=== PATIENT | male | born 1990 | race Caucasian/White ===

== ENCOUNTER 2017-07-30 10:18 | Inpatient (IN) | payer MEDICAID ==
[~2017-07-30] VITALS: Ht 177.8 cm; Wt 154.7 kg
[2017-07-30] MEDS: NACL 0.9% 1,000 ML IV SCH ×3 (00:45→18:27)
[2017-07-30 10:19] VITALS: BP 156/105
[2017-07-30] MEDS ORDERED: NACL 0.9% 1,000 ML IV ONE ×2 (11:00→11:45)
[2017-07-30 11:16] LABS: BASOPHILS # (AUTO) 0.1 K/uL (0.00-0.22); BASOPHILS % (AUTO) 1.2 % (0.0-2.0); EOSINOPHILS # (AUTO) 0.1 K/uL (0-0.4); EOSINOPHILS % (AUTO) 0.6 % (0.0-4.0); HEMATOCRIT 46.5 % (36-52); HEMOGLOBIN 15.4 g/dL (12.0-18.0); LYMPHOCYTES # (AUTO) 2.2 K/uL (2.0-11.5); LYMPHOCYTES % (AUTO) 22.6 % (20.5-51.1); MEAN CORPUSCULAR HEMOGLOBIN 24 pg (27-31); MEAN CORPUSCULAR HGB CONC 33 g/dL (33-37); MEAN CORPUSCULAR VOLUME 72.7 fL (80-94); MONOCYTES # (AUTO) 0.7 K/uL (0.8-1.0); MONOCYTES % (AUTO) 6.9 % (1.7-9.3); NEUTROPHILS # (AUTO) 6.8 K/uL (1.8-7.7); NEUTROPHILS % (AUTO) 68.7 % (42.2-75.2); PLATELET COUNT (AUTO) 226 K/uL (140-450); RED CELL DISTRIBUTION WIDTH 17.9 % (11.6-13.7); WHITE BLOOD COUNT (AUTO) 9.9 K/uL (4.8-10.8)
[2017-07-30 11:35] LABS: ALBUMIN 3.8 g/dL (3.4-5.0); ANION GAP 22.6 (8-16); CARBON DIOXIDE 21.8 mmol/L (21-32); CREATININE 1.4 mg/dL (0.7-1.3); POTASSIUM 4.4 mmol/L (3.5-5.1); TOTAL BILIRUBIN 0.6 mg/dL (0.0-1.0)
[2017-07-30] MEDS ORDERED: INSULIN REGULAR, HUMAN 100 UNIT/ML VIAL SUBQ ONE (11:45)
[2017-07-30] MEDS ORDERED: ACETAMINOPHEN 325 MG TAB PO PRN (12:30)
[2017-07-30] MEDS ORDERED: DEXTROSE 50% 50 ML SYR IVP PRN (13:00)
[2017-07-30 13:30] VITALS: BP 144/68
[2017-07-30] MEDS ORDERED: INSULIN LANTUS 100 UNITS/ML 10 ML VIAL SUBQ SCH (13:30)
[2017-07-30 13:32] LABS: PROTHROMBIN TIME 10.4 secs (10.8-13.4)
[2017-07-30 14:01] LABS: FREE T4 (FREE THYROXINE) 1.14 ng/dL (0.76-1.46); PHOSPHORUS 4.2 mg/dL (2.5-4.9); THYROID STIMULATING HORMONE 1.79 uIU/mL (0.34-3.74)
[2017-07-30 16:00] VITALS: BP 150/96
[2017-07-30] MEDS ORDERED: metFORMIN 500 MG TAB PO SCH (17:00)
[2017-07-30] MEDS: BLOOD GLUCOSE MONITORING 1 DEV DEV FS SCH ×2 (17:30→21:00)
[2017-07-30] MEDS: INSULIN LISPRO SLIDING SCALE 100 UNITS/ML VIAL SUBQ PRN ×2 (17:46→21:35)
[2017-07-30] MEDS ORDERED: INSULIN LISPRO 100 UNITS/ML VIAL SUBQ SCH (18:00)
[2017-07-30 20:00] VITALS: BP 138/81
[2017-07-30] MEDS: DOCUSATE SODIUM 100 MG GELCAP PO SCH (21:00)
[2017-07-31] VITALS: BP 116/68
[2017-07-31] MEDS: NACL 0.9% 1,000 ML IV SCH ×3 (03:26→20:09)
[2017-07-31 04:00] VITALS: BP 122/72
[2017-07-31] MEDS: INSULIN LISPRO SLIDING SCALE 100 UNITS/ML VIAL SUBQ PRN ×4 (05:55→20:42)
[2017-07-31] MEDS: BLOOD GLUCOSE MONITORING 1 DEV DEV FS SCH ×4 (06:42→20:28)
[2017-07-31 07:37] LABS: BASOPHILS # (AUTO) 0.1 K/uL (0.00-0.22); BASOPHILS % (AUTO) 1.1 % (0.0-2.0); EOSINOPHILS # (AUTO) 0.3 K/uL (0-0.4); EOSINOPHILS % (AUTO) 2.9 % (0.0-4.0); HEMATOCRIT 42.9 % (36-52); HEMOGLOBIN 13.9 g/dL (12.0-18.0); LYMPHOCYTES # (AUTO) 2.6 K/uL (2.0-11.5); LYMPHOCYTES % (AUTO) 29.5 % (20.5-51.1); MEAN CORPUSCULAR HEMOGLOBIN 24 pg (27-31); MEAN CORPUSCULAR HGB CONC 32 g/dL (33-37); MEAN CORPUSCULAR VOLUME 72.9 fL (80-94); MONOCYTES # (AUTO) 0.5 K/uL (0.8-1.0); MONOCYTES % (AUTO) 5.4 % (1.7-9.3); NEUTROPHILS # (AUTO) 5.4 K/uL (1.8-7.7); NEUTROPHILS % (AUTO) 61.1 % (42.2-75.2); PLATELET COUNT (AUTO) 190 K/uL (140-450); RED BLOOD CELL COUNT(AUTO) 5.88 MIL/uL (4.20-6.10); RED CELL DISTRIBUTION WIDTH 19.1 % (11.6-13.7); WHITE BLOOD COUNT (AUTO) 8.8 K/uL (4.8-10.8)
[2017-07-31 07:48] LABS: ANION GAP 18.7 (8-16); CARBON DIOXIDE 20.1 mmol/L (21-32); CREATININE 0.9 mg/dL (0.7-1.3); POTASSIUM 3.8 mmol/L (3.5-5.1)
[2017-07-31 07:52] LABS: MAGNESIUM 1.6 mg/dL (1.8-2.4); PHOSPHORUS 3.5 mg/dL (2.5-4.9)
[2017-07-31 08:00] VITALS: BP 145/91
[2017-07-31] MEDS ORDERED: metFORMIN 850 MG TAB PO SCH (08:30)
[2017-07-31] MEDS: DOCUSATE SODIUM 100 MG GELCAP PO SCH ×2 (08:53→20:47)
[2017-07-31] MEDS: LISINOPRIL 5 MG TAB PO SCH (08:54)
[2017-07-31] MEDS ORDERED: INSULIN LANTUS 100 UNITS/ML 10 ML VIAL SUBQ SCH ×2 (09:00)
[2017-07-31] MEDS: metFORMIN 850 MG TAB PO SCH ×2 (11:48→16:34)
[2017-07-31 12:00] VITALS: BP 142/96
[2017-07-31 16:00] VITALS: BP 148/86
[2017-07-31] MEDS ORDERED: MAG SULF 2000 MG/WATER PREMIX 50 ML IV SCH (16:30)
[2017-07-31 19:49] VITALS: BP 146/84
[2017-07-31] MEDS ORDERED: INSULIN LANTUS 100 UNITS/ML 10 ML VIAL SUBQ ONE (21:00)
[2017-08-01] VITALS: BP 128/83
[2017-08-01] MEDS: NACL 0.9% 1,000 ML IV SCH ×3 (03:35→23:35)
[2017-08-01 03:55] VITALS: BP 133/84
[2017-08-01] MEDS: BLOOD GLUCOSE MONITORING 1 DEV DEV FS SCH ×4 (06:00→20:46)
[2017-08-01] MEDS: INSULIN LISPRO SLIDING SCALE 100 UNITS/ML VIAL SUBQ PRN ×4 (06:02→20:41)
[2017-08-01 06:56] LABS: ANION GAP 15.8 (8-16); CARBON DIOXIDE 21.8 mmol/L (21-32); CREATININE 0.8 mg/dL (0.7-1.3); POTASSIUM 3.6 mmol/L (3.5-5.1)
[2017-08-01 06:57] LABS: BASOPHILS # (AUTO) 0.1 K/uL (0.00-0.22); BASOPHILS % (AUTO) 0.9 % (0.0-2.0); EOSINOPHILS # (AUTO) 0.4 K/uL (0-0.4); EOSINOPHILS % (AUTO) 4.8 % (0.0-4.0); HEMATOCRIT 41.4 % (36-52); HEMOGLOBIN 13.5 g/dL (12.0-18.0); LYMPHOCYTES # (AUTO) 2.4 K/uL (2.0-11.5); LYMPHOCYTES % (AUTO) 29.6 % (20.5-51.1); MEAN CORPUSCULAR HEMOGLOBIN 24 pg (27-31); MEAN CORPUSCULAR HGB CONC 33 g/dL (33-37); MEAN CORPUSCULAR VOLUME 72.9 fL (80-94); MONOCYTES # (AUTO) 0.5 K/uL (0.8-1.0); MONOCYTES % (AUTO) 5.8 % (1.7-9.3); NEUTROPHILS # (AUTO) 4.7 K/uL (1.8-7.7); NEUTROPHILS % (AUTO) 58.9 % (42.2-75.2); PLATELET COUNT (AUTO) 187 K/uL (140-450); RED BLOOD CELL COUNT(AUTO) 5.68 MIL/uL (4.20-6.10); RED CELL DISTRIBUTION WIDTH 18.4 % (11.6-13.7)
[2017-08-01 07:12] LABS: MAGNESIUM 1.5 mg/dL (1.8-2.4); PHOSPHORUS 3.5 mg/dL (2.5-4.9)
[2017-08-01 08:00] VITALS: BP 133/92
[2017-08-01] MEDS: ATORVASTATIN 20 MG TAB PO SCH (08:25)
[2017-08-01] MEDS: ASPIRIN 81 MG TAB.CHEW PO SCH (08:25)
[2017-08-01] MEDS: metFORMIN 850 MG TAB PO SCH ×3 (08:25→17:22)
[2017-08-01] MEDS: DOCUSATE SODIUM 100 MG GELCAP PO SCH ×2 (08:25→20:39)
[2017-08-01] MEDS: LISINOPRIL 5 MG TAB PO SCH (08:26)
[2017-08-01] MEDS: INSULIN LANTUS 100 UNITS/ML 10 ML VIAL SUBQ SCH ×2 (08:41→08:49)
[2017-08-01] MEDS ORDERED: INSULIN LANTUS 100 UNITS/ML 10 ML VIAL SUBQ SCH (09:00)
[2017-08-01] MEDS ORDERED: MAG SULF 2000 MG/WATER PREMIX 50 ML IV SCH (12:00)
[2017-08-01 16:00] VITALS: BP 136/76
[2017-08-01 20:00] VITALS: BP 134/73
[2017-08-02] VITALS: BP 131/83
[2017-08-02] MEDS: NACL 0.9% 1,000 ML IV SCH ×2 (06:21→17:41)
[2017-08-02] MEDS: BLOOD GLUCOSE MONITORING 1 DEV DEV FS SCH ×4 (06:51→20:26)
[2017-08-02] MEDS: INSULIN LISPRO SLIDING SCALE 100 UNITS/ML VIAL SUBQ PRN ×4 (06:52→21:32)
[2017-08-02 07:28] LABS: BASOPHILS # (AUTO) 0.1 K/uL (0.00-0.22); BASOPHILS % (AUTO) 1.3 % (0.0-2.0); EOSINOPHILS # (AUTO) 0.3 K/uL (0-0.4); EOSINOPHILS % (AUTO) 5.1 % (0.0-4.0); HEMATOCRIT 39.3 % (36-52); LYMPHOCYTES # (AUTO) 1.8 K/uL (2.0-11.5); LYMPHOCYTES % (AUTO) 26.7 % (20.5-51.1); MEAN CORPUSCULAR HEMOGLOBIN 24 pg (27-31); MEAN CORPUSCULAR HGB CONC 33 g/dL (33-37); MONOCYTES # (AUTO) 0.5 K/uL (0.8-1.0); MONOCYTES % (AUTO) 7.3 % (1.7-9.3); NEUTROPHILS % (AUTO) 59.6 % (42.2-75.2); PLATELET COUNT (AUTO) 175 K/uL (140-450); RED BLOOD CELL COUNT(AUTO) 5.45 MIL/uL (4.20-6.10); RED CELL DISTRIBUTION WIDTH 18.6 % (11.6-13.7); WHITE BLOOD COUNT (AUTO) 6.7 K/uL (4.8-10.8)
[2017-08-02 07:41] LABS: MAGNESIUM 1.6 mg/dL (1.8-2.4); PHOSPHORUS 3.6 mg/dL (2.5-4.9)
[2017-08-02 07:46] LABS: ANION GAP 13.2 (8-16); CARBON DIOXIDE 21.3 mmol/L (21-32); CREATININE 0.7 mg/dL (0.7-1.3); POTASSIUM 3.5 mmol/L (3.5-5.1)
[2017-08-02 08:00] VITALS: BP 144/90
[2017-08-02] MEDS: metFORMIN 850 MG TAB PO SCH ×3 (08:44→17:37)
[2017-08-02] MEDS: ATORVASTATIN 20 MG TAB PO SCH (08:44)
[2017-08-02] MEDS: ASPIRIN 81 MG TAB.CHEW PO SCH (08:44)
[2017-08-02] MEDS: LISINOPRIL 5 MG TAB PO SCH (08:45)
[2017-08-02] MEDS: INSULIN LANTUS 100 UNITS/ML 10 ML VIAL SUBQ SCH (08:46)
[2017-08-02] MEDS: DOCUSATE SODIUM 100 MG GELCAP PO SCH ×2 (08:55→21:30)
[2017-08-02] MEDS ORDERED: CALCIUM CARB/VIT-D 500 MG/200 IU 1 TAB PO SCH (10:30)
[2017-08-02] MEDS ORDERED: MAGNESIUM OXIDE 400 MG TAB PO SCH (10:30)
[2017-08-02] MEDS: INSULIN NPH HUM/REG INSULIN HM 100 UNIT/ML 10 ML VIAL SUBQ SCH ×2 (11:34→20:28)
[2017-08-02 16:00] VITALS: BP 143/91
[2017-08-02] MEDS ORDERED: MAG SULF 2000 MG/WATER PREMIX 50 ML IV SCH (16:00)
[2017-08-02 20:00] VITALS: BP 123/50
[2017-08-03] VITALS: BP 118/71
[2017-08-03] MEDS: NACL 0.9% 1,000 ML IV SCH (05:32)
[2017-08-03] MEDS: BLOOD GLUCOSE MONITORING 1 DEV DEV FS SCH ×2 (06:10→11:30)
[2017-08-03] MEDS: INSULIN LISPRO SLIDING SCALE 100 UNITS/ML VIAL SUBQ PRN ×2 (06:14→12:42)
[2017-08-03 07:29] LABS: BASOPHILS # (AUTO) 0.1 K/uL (0.00-0.22); BASOPHILS % (AUTO) 0.7 % (0.0-2.0); EOSINOPHILS # (AUTO) 0.3 K/uL (0-0.4); EOSINOPHILS % (AUTO) 3.1 % (0.0-4.0); HEMATOCRIT 39.6 % (36-52); HEMOGLOBIN 12.9 g/dL (12.0-18.0); LYMPHOCYTES # (AUTO) 1.8 K/uL (2.0-11.5); LYMPHOCYTES % (AUTO) 19.7 % (20.5-51.1); MEAN CORPUSCULAR HEMOGLOBIN 24 pg (27-31); MEAN CORPUSCULAR HGB CONC 33 g/dL (33-37); MONOCYTES # (AUTO) 0.6 K/uL (0.8-1.0); MONOCYTES % (AUTO) 6.7 % (1.7-9.3); NEUTROPHILS # (AUTO) 6.4 K/uL (1.8-7.7); NEUTROPHILS % (AUTO) 69.8 % (42.2-75.2); PLATELET COUNT (AUTO) 174 K/uL (140-450); RED BLOOD CELL COUNT(AUTO) 5.42 MIL/uL (4.20-6.10); RED CELL DISTRIBUTION WIDTH 19.2 % (11.6-13.7); WHITE BLOOD COUNT (AUTO) 9.2 K/uL (4.8-10.8)
[2017-08-03 07:45] LABS: ANION GAP 14.6 (8-16); CARBON DIOXIDE 22.6 mmol/L (21-32); CREATININE 0.8 mg/dL (0.7-1.3); POTASSIUM 3.2 mmol/L (3.5-5.1)
[2017-08-03 07:57] LABS: MAGNESIUM 1.6 mg/dL (1.8-2.4); PHOSPHORUS 3.9 mg/dL (2.5-4.9)
[2017-08-03 08:00] VITALS: BP 142/81
[2017-08-03] MEDS ORDERED: CALCIUM CARB/VIT-D 500 MG/200 IU 1 TAB PO SCH (09:00)
[2017-08-03] MEDS ORDERED: MAGNESIUM OXIDE 400 MG TAB PO SCH ×2 (09:00→14:00)
[2017-08-03] MEDS: DOCUSATE SODIUM 100 MG GELCAP PO SCH (09:00)
[2017-08-03] MEDS: ATORVASTATIN 20 MG TAB PO SCH (09:03)
[2017-08-03] MEDS: LISINOPRIL 5 MG TAB PO SCH (09:04)
[2017-08-03] MEDS: metFORMIN 850 MG TAB PO SCH ×2 (09:04→12:39)
[2017-08-03] MEDS: ASPIRIN 81 MG TAB.CHEW PO SCH (09:04)
[2017-08-03] MEDS: INSULIN NPH HUM/REG INSULIN HM 100 UNIT/ML 10 ML VIAL SUBQ SCH (09:07)
[2017-08-03] MEDS: INSULIN LANTUS 100 UNITS/ML 10 ML VIAL SUBQ SCH (09:08)
[2017-08-03] MEDS ORDERED: CALC-846 PO (13:30)
[2017-08-03] MEDS ORDERED: ASPI81CT95 PO (13:30)
[2017-08-03] MEDS ORDERED: MAG400 PO (13:30)
[2017-08-03] MEDS ORDERED: LISI-424 PO (13:30)
[2017-08-03] MEDS ORDERED: HUM7030 SUBQ (13:30)
[2017-08-03] MEDS ORDERED: ATOR20TA40 PO (13:30)
[2017-08-03] MEDS ORDERED: GLUC-805 FS (13:30)
[2017-08-03] MEDS ORDERED: LANTUS SUBQ (13:30)
[2017-08-03] MEDS ORDERED: METF850T PO (13:30)
== END 2017-08-03 15:55 | disposition home or self-care (01) | DRG 420 ==
LOC: MED 10:18 → MTU 12:32
PROVIDERS: ADMIT Family Medicine; ATTEND Family Medicine
DX: E11.00 Type 2 diabetes mellitus with hyperosmolarity without nonketotic hyperglycemic-hyperosmolar coma (NKHHC) (principal); N17.0 Acute kidney failure with tubular necrosis; E44.0 Moderate protein-calorie malnutrition; Z68.42 Body mass index [BMI] 45.0-49.9, adult; E11.69 Type 2 diabetes mellitus with other specified complication; D68.59 Other primary thrombophilia; E87.1 Hypo-osmolality and hyponatremia; D64.9 Anemia, unspecified; E66.01 Morbid (severe) obesity due to excess calories; E83.42 Hypomagnesemia; K21.9 Gastro-esophageal reflux disease without esophagitis; F12.90 Cannabis use, unspecified, uncomplicated; N28.9 Disorder of kidney and ureter, unspecified; E78.5 Hyperlipidemia, unspecified; E11.51 Type 2 diabetes mellitus with diabetic peripheral angiopathy without gangrene; E83.51 Hypocalcemia; Z82.49 Family history of ischemic heart disease and other diseases of the circulatory system; Z84.1 Family history of disorders of kidney and ureter; Z79.4 Long term (current) use of insulin
CPT/HCPCS: 36415; 36600; 80048; 80053; 82009; 82150; 82803; 82948; 83036; 83690; 83735; 83880; 84100; 84439; 84443; 84484; 85025; 85610; 85730; 87081; 93005; 93925; 93970; 96360; 96361; 99285; J1644; J1815; J3475; J7030; Q0092

== ENCOUNTER 2017-10-29 17:17 | Inpatient (IN) | payer MEDICAID ==
[~2017-10-29] VITALS: Ht 177.8 cm; Wt 144.2 kg
[2017-10-29] VITALS (12 sets, daily range): BP systolic 106–181; BP diastolic 57–102
[~2017-10-29 17:17] MED LIST: ASPI81CT95 PO; ATOR20TA40 PO; CALC-846 PO; GLUC-805 FS; HUM7030 SUBQ; LANTUS SUBQ; LISI-424 PO; MAG400 PO; METF850T PO
[2017-10-29] MEDS ORDERED: NACL 0.9% 1,000 ML IV SCH (17:38)
[2017-10-29] MEDS ORDERED: NACL 0.9% 2,000 ML IV SCH (17:38)
[2017-10-29] MEDS ORDERED: INSULIN REGULAR, HUMAN 100 UNIT in NACL 0.9% 100 ML IV ONE ×2 (17:40)
[2017-10-29] MEDS ORDERED: ONDANSETRON 4 MG/2 ML VIAL IVP ONE (17:40)
[2017-10-29] MEDS ORDERED: cefTRIAXone 1,000 MG in DEXT 5% MINI-BAG PLUS 50 ML IV ONE (17:40)
[2017-10-29] MEDS ORDERED: METOCLOPRAMIDE 10 MG/2 ML INJ VIAL IVP ONE (17:40)
[2017-10-29] MEDS ORDERED: diphenhydrAMINE 50 MG/ML VIAL IVP ONE (17:40)
[2017-10-29] MEDS ORDERED: NACL 0.9% 2,000 ML IV ONE (18:05)
[2017-10-29] MEDS ORDERED: LORazepam 2 MG/ML VIAL IVP ONE (18:05)
[2017-10-29] MEDS ORDERED: HALOPERIDOL IM 5 MG/ML VIAL ONE (18:19)
[2017-10-29] MEDS ORDERED: PROPOFOL 1000 MG/100 ML PREMIX 100 ML IV ONE ×2 (18:32→20:15)
[2017-10-29] MEDS ORDERED: INSULIN REGULAR, HUMAN 100 UNIT/ML VIAL IV ONE (18:40)
[2017-10-29] MEDS ORDERED: DEXTROSE 50% 50 ML SYR IVP PRN (18:50)
[2017-10-29] MEDS ORDERED: BLOOD GLUCOSE MONITORING 1 DEV DEV FS SCH (18:50)
[2017-10-29] MEDS ORDERED: INSULIN REGULAR, HUMAN 100 UNIT in NACL 0.9% 100 ML IV SCH ×4 (18:50→19:45)
[2017-10-29] MEDS ORDERED: ETOMIDATE 20 MG/10 ML VIAL IVP ONE (19:05)
[2017-10-29] MEDS ORDERED: HALOPERIDOL IM 5 MG/ML VIAL IM ONE (19:05)
[2017-10-29] MEDS ORDERED: SUCCINYLCHOLINE CHLORIDE 200 MG/10 ML VIAL IVP ONE (19:05)
[2017-10-29 19:23] LABS: HEMATOCRIT 55.7 % (36-52); MEAN CORPUSCULAR HEMOGLOBIN 27 pg (27-31); MEAN CORPUSCULAR HGB CONC 31 g/dL (33-37); MEAN CORPUSCULAR VOLUME 86.9 fL (80-94); PLATELET COUNT (AUTO) 265 K/uL (140-450); RED BLOOD CELL COUNT(AUTO) 6.41 MIL/uL (4.20-6.10); RED CELL DISTRIBUTION WIDTH 17.3 % (11.6-13.7)
[2017-10-29 19:43] LABS: LYMPHOCYTES % (MANUAL) 9 % (20-46)
[2017-10-29] MEDS ORDERED: ROCURONIUM 50 MG/5 ML VIAL IV ONE (19:45)
[2017-10-29 19:57] LABS: ALBUMIN 3.8 g/dL (3.4-5.0); CREATININE 1.5 mg/dL (0.7-1.3); TOTAL BILIRUBIN 0.4 mg/dL (0.0-1.0)
[2017-10-29 19:58] LABS: LIPASE 136 U/L (73-393)
[2017-10-29 20:01] LABS: ANION GAP 37.3 (8-16); CARBON DIOXIDE 4.7 mmol/L (21-32)
[2017-10-29] MEDS ORDERED: DOCUSATE SODIUM 100 MG GELCAP PO PRN (20:15)
[2017-10-29] MEDS ORDERED: ACETAMINOPHEN 325 MG TAB PO PRN (20:15)
[2017-10-29] MEDS ORDERED: ZOLPIDEM 5 MG TAB PO PRN (20:15)
[2017-10-29] MEDS ORDERED: HYDROcodone/APAP 5/325 MG 1 TAB TAB PO PRN (20:15)
[2017-10-29] MEDS ORDERED: ONDANSETRON 4 MG/2 ML VIAL IM/IVP PRN (20:15)
[2017-10-29] MEDS ORDERED: MORPHINE SULFATE 2 MG/ML SYR IVP PRN (20:15)
[2017-10-29 20:42] LABS: APPEARANCE,URINE CLEAR (CLEAR); BILIRUBIN,URINE 2+ (NEGATIVE); BLOOD, URINE 2+ (NEGATIVE); LEUKOCYTE ESTERASE ,URINE NEGATIVE (NEGATIVE); NITRITE, URINE NEGATIVE (NEGATIVE); PH,URINE 5.5 (5.0-9.0); UGLUCOSE 3+ (NEGATIVE)
[2017-10-29 20:45] LABS: COLOR,URINE STRAW (YELLOW)
[2017-10-29 20:48] LABS: BARBITURATE, URINE NEG. ng/ml (NEG <=200); BENZODIAZEPINE, URINE NEG. ng/mL (NEG <=200); CANNABINOID, URINE POS. ng/mL (NEG <=50); COCAINE, URINE NEG. ng/mL (NEG <=300); OPIATE, URINE NEG. ng/mL (NEG <=2000); PHENCYCLIDINE SCREEN,URINE NEG. ng/mL (NEG <=25)
[2017-10-29 20:59] LABS: RBC,URINE 0-5 (RARE) /HPF (0-5); WBC,URINE NONE SEEN /HPF (0-5)
[2017-10-29] MEDS ORDERED: cefTRIAXone 1,000 MG VIAL ONE (21:00)
[2017-10-29] MEDS: BLOOD GLUCOSE MONITORING 1 DEV DEV FS SCH ×3 (21:15→23:04)
[2017-10-29 21:19] LABS: AMYLASE 18 U/L (25-115); FREE T4 (FREE THYROXINE) 0.89 ng/dL (0.76-1.46); MAGNESIUM 1.9 mg/dL (1.8-2.4); THYROID STIMULATING HORMONE 2.05 uIU/mL (0.34-3.74)
[2017-10-29] MEDS: PROPOFOL 1000 MG/100 ML PREMIX 100 ML IV PRN ×2 (21:25→23:22)
[2017-10-29] MEDS: MORPHINE SULFATE 2 MG/ML SYR IVP PRN (21:50)
[2017-10-29] MEDS: NACL 0.9% 1,000 ML IV SCH (21:53)
[2017-10-29 22:13] LABS: ANION GAP 29.5 (8-16); CREATININE 1.7 mg/dL (0.7-1.3)
[2017-10-29 22:18] LABS: CARBON DIOXIDE 7.5 mmol/L (21-32)
[2017-10-29] MEDS ORDERED: SODIUM BICARBONATE 8.4% 50 MEQ in NACL 0.9% 1,000 ML IV SCH (22:25)
[2017-10-29 22:32] LABS: MAGNESIUM 1.6 mg/dL (1.8-2.4); PHOSPHORUS 4.5 mg/dL (2.5-4.9)
[2017-10-29] MEDS: LORazepam 2 MG/ML VIAL IM/IVP PRN (22:55)
[2017-10-29] MEDS ORDERED: LORazepam 50 MG in NACL 0.9% 25 ML IV PRN (23:15)
[2017-10-29] MEDS ORDERED: SODIUM BICARBONATE 8.4% PFS 50 MEQ/50 ML SYR IVP ONE (23:39)
[2017-10-30] VITALS (106 sets, daily range): BP systolic 84–164; BP diastolic 29–89
[2017-10-30] MEDS: MORPHINE SULFATE 2 MG/ML SYR IVP PRN ×2 (00:10→21:13)
[2017-10-30] MEDS: BLOOD GLUCOSE MONITORING 1 DEV DEV FS SCH ×24 (00:15→23:24)
[2017-10-30] MEDS ORDERED: PIPERACILLIN/TAZOBACTAM 3.375 GM VIAL IV ONE (00:22)
[2017-10-30] MEDS: PIPER/TAZO 3.375GM/D5W PREMIX 50 ML IV SCH ×5 (00:34→23:45)
[2017-10-30] MEDS: PROPOFOL 1000 MG/100 ML PREMIX 100 ML IV PRN ×5 (02:06→15:42)
[2017-10-30 04:51] LABS: BASOPHILS % (AUTO) 0.2 % (0.0-2.0); HEMATOCRIT 46.5 % (36-52); HEMOGLOBIN 15.4 g/dL (12.0-18.0); LYMPHOCYTES # (AUTO) 1.4 K/uL (2.0-11.5); LYMPHOCYTES % (AUTO) 9.2 % (20.5-51.1); MEAN CORPUSCULAR HEMOGLOBIN 27 pg (27-31); MEAN CORPUSCULAR HGB CONC 33 g/dL (33-37); MEAN CORPUSCULAR VOLUME 81.8 fL (80-94); MONOCYTES # (AUTO) 1.8 K/uL (0.8-1.0); MONOCYTES % (AUTO) 11.5 % (1.7-9.3); NEUTROPHILS # (AUTO) 12.5 K/uL (1.8-7.7); NEUTROPHILS % (AUTO) 79.1 % (42.2-75.2); PLATELET COUNT (AUTO) 185 K/uL (140-450); RED BLOOD CELL COUNT(AUTO) 5.69 MIL/uL (4.20-6.10); RED CELL DISTRIBUTION WIDTH 16.3 % (11.6-13.7); WHITE BLOOD COUNT (AUTO) 15.8 K/uL (4.8-10.8)
[2017-10-30] MEDS: NACL 0.9% 1,000 ML IV SCH ×4 (05:00→18:35)
[2017-10-30 05:08] LABS: MAGNESIUM 1.6 mg/dL (1.8-2.4); PHOSPHORUS 1.3 mg/dL (2.5-4.9)
[2017-10-30] MEDS ORDERED: LACTOBACILLUS RHAMNOSUS GG 1 EACH CAP PO SCH (09:00)
[2017-10-30] MEDS ORDERED: PROPOFOL 1000 MG/100 ML PREMIX 100 ML IV PRN (10:11)
[2017-10-30 10:42] LABS: ANION GAP 23.7 (8-16); CARBON DIOXIDE 12.5 mmol/L (21-32); CREATININE 1.4 mg/dL (0.7-1.3); POTASSIUM 3.2 mmol/L (3.5-5.1)
[2017-10-30 10:47] LABS: MAGNESIUM 1.6 mg/dL (1.8-2.4); PHOSPHORUS 1.5 mg/dL (2.5-4.9)
[2017-10-30 10:48] LABS: CHOL/HDL RATIO 6.8 (1-4.5)
[2017-10-30] MEDS ORDERED: POTASSIUM CHL 10 MEQ/D5-1/2NS 1,000 ML IV SCH (12:50)
[2017-10-30] MEDS: LACTULOSE 20 GM/30 ML UDC PO SCH (13:39)
[2017-10-30] MEDS: ASPIRIN 81 MG TAB.CHEW PO SCH (14:10)
[2017-10-30] MEDS: KCL 20 MEQ/WATER INJ PREMIX 100 ML IV SCH ×2 (14:10→16:04)
[2017-10-30] MEDS: LISINOPRIL 5 MG TAB PO SCH (14:11)
[2017-10-30] MEDS: ATORVASTATIN 20 MG TAB PO SCH (14:11)
[2017-10-30 15:21] LABS: MAGNESIUM 1.5 mg/dL (1.8-2.4); PHOSPHORUS 1.4 mg/dL (2.5-4.9)
[2017-10-30 15:27] LABS: POTASSIUM 2.5 mmol/L (3.5-5.1)
[2017-10-30 15:28] LABS: ANION GAP 21.7 (8-16); CARBON DIOXIDE 13.8 mmol/L (21-32); CREATININE 1.3 mg/dL (0.7-1.3)
[2017-10-30] MEDS ORDERED: POTASSIUM CHLORIDE 10 MEQ TABER PO ONE (15:35)
[2017-10-30] MEDS ORDERED: POTASSIUM CHLORIDE 20% 40 MEQ/15 ML UDC PO SCH (15:45)
[2017-10-30] MEDS: LORazepam 2 MG/ML VIAL IM/IVP PRN (17:15)
[2017-10-30 17:33] LABS: MAGNESIUM 1.5 mg/dL (1.8-2.4); PHOSPHORUS 1.8 mg/dL (2.5-4.9)
[2017-10-30] MEDS ORDERED: SODIUM BICARBONATE 8.4% 50 MEQ in NACL 0.9% 1,000 ML IV SCH (17:50)
[2017-10-30] MEDS ORDERED: SODIUM BICARBONATE 8.4% PFS 50 MEQ/50 ML SYR IVP ONE (20:19)
[2017-10-30 21:30] LABS: ANION GAP 14.7 (8-16); CARBON DIOXIDE 17.5 mmol/L (21-32); CREATININE 1.3 mg/dL (0.7-1.3); POTASSIUM 3.2 mmol/L (3.5-5.1)
[2017-10-30] MEDS ORDERED: NACL 0.9% 500 ML IV SCH (21:30)
[2017-10-30] MEDS ORDERED: KCL 20 MEQ/WATER INJ PREMIX 200 ML IV ONE (21:30)
[2017-10-30 21:34] LABS: MAGNESIUM 1.6 mg/dL (1.8-2.4); PHOSPHORUS 1.3 mg/dL (2.5-4.9)
[2017-10-30] MEDS ORDERED: MAG SULF 2000 MG/WATER PREMIX 100 ML IV ONE (21:35)
[2017-10-30] MEDS: INSULIN REGULAR, HUMAN 100 UNIT in NACL 0.9% 100 ML IV SCH ×2 (23:24)
[2017-10-31] VITALS (103 sets, daily range): BP systolic 93–142; BP diastolic 5–89
[2017-10-31 00:30] LABS: ANION GAP 16.1 (8-16); CARBON DIOXIDE 15.8 mmol/L (21-32); CREATININE 1.2 mg/dL (0.7-1.3)
[2017-10-31] MEDS: BLOOD GLUCOSE MONITORING 1 DEV DEV FS SCH ×26 (00:30→23:37)
[2017-10-31 00:33] LABS: PHOSPHORUS 1.1 mg/dL (2.5-4.9); POTASSIUM 2.9 mmol/L (3.5-5.1)
[2017-10-31] MEDS: PROPOFOL 1000 MG/100 ML PREMIX 100 ML IV PRN ×6 (02:06→22:51)
[2017-10-31] MEDS: INSULIN REGULAR, HUMAN 100 UNIT in NACL 0.9% 100 ML IV SCH ×6 (02:11→07:07)
[2017-10-31] MEDS: NACL 0.9% 1,000 ML IV SCH ×6 (02:51→19:35)
[2017-10-31 04:58] LABS: BASOPHILS % (AUTO) 0.3 % (0.0-2.0); EOSINOPHILS % (AUTO) 0.1 % (0.0-4.0); HEMATOCRIT 38.1 % (36-52); HEMOGLOBIN 12.7 g/dL (12.0-18.0); LYMPHOCYTES # (AUTO) 0.7 K/uL (2.0-11.5); LYMPHOCYTES % (AUTO) 8.3 % (20.5-51.1); MEAN CORPUSCULAR HEMOGLOBIN 27 pg (27-31); MEAN CORPUSCULAR HGB CONC 33 g/dL (33-37); MEAN CORPUSCULAR VOLUME 81.5 fL (80-94); MONOCYTES # (AUTO) 1.1 K/uL (0.8-1.0); MONOCYTES % (AUTO) 12.4 % (1.7-9.3); NEUTROPHILS # (AUTO) 6.8 K/uL (1.8-7.7); PLATELET COUNT (AUTO) 135 K/uL (140-450); RED BLOOD CELL COUNT(AUTO) 4.67 MIL/uL (4.20-6.10); WHITE BLOOD COUNT (AUTO) 8.7 K/uL (4.8-10.8)
[2017-10-31] MEDS: PIPER/TAZO 3.375GM/D5W PREMIX 50 ML IV SCH ×4 (05:21→23:53)
[2017-10-31 05:51] LABS: NEUTROPHILS % (AUTO) 78.9 % (42.2-75.2)
[2017-10-31] MEDS: ATORVASTATIN 20 MG TAB PO SCH (08:34)
[2017-10-31] MEDS: ASPIRIN 81 MG TAB.CHEW PO SCH (08:34)
[2017-10-31] MEDS: LACTULOSE 20 GM/30 ML UDC PO SCH (08:34)
[2017-10-31] MEDS: LACTOBACILLUS RHAMNOSUS GG 1 EACH CAP GT SCH (08:34)
[2017-10-31] MEDS: LISINOPRIL 5 MG TAB PO SCH (08:34)
[2017-10-31 08:55] LABS: ANION GAP 17.8 (8-16); CARBON DIOXIDE 15.4 mmol/L (21-32); CREATININE 1.2 mg/dL (0.7-1.3); POTASSIUM 3.2 mmol/L (3.5-5.1)
[2017-10-31 09:13] LABS: T3 UPTAKE 29 % (24-39)
[2017-10-31 09:52] LABS: MAGNESIUM 2.2 mg/dL (1.8-2.4)
[2017-10-31] MEDS: KCL 20 MEQ/WATER INJ PREMIX 100 ML IV SCH ×2 (12:08→14:12)
[2017-10-31] MEDS ORDERED: SODIUM BICARBONATE IV SCH (14:48)
[2017-10-31] MEDS ORDERED: NACL 0.9% IV SCH (14:48)
[2017-11-01] VITALS (42 sets, daily range): BP systolic 99–165; BP diastolic 49–97
[2017-11-01] MEDS: DEXT 5% / NACL 0.45% 1,000 ML IV SCH ×4 (00:08→18:10)
[2017-11-01] MEDS: BLOOD GLUCOSE MONITORING 1 DEV DEV FS SCH ×16 (00:38→21:30)
[2017-11-01] MEDS: PROPOFOL 1000 MG/100 ML PREMIX 100 ML IV PRN ×3 (01:12→10:33)
[2017-11-01] MEDS: INSULIN REGULAR, HUMAN 100 UNIT in NACL 0.9% 100 ML IV SCH ×2 (03:14)
[2017-11-01 03:26] LABS: ANION GAP 11.4 (8-16); CREATININE 0.9 mg/dL (0.7-1.3)
[2017-11-01 03:30] LABS: MAGNESIUM 1.8 mg/dL (1.8-2.4); PHOSPHORUS 2.3 mg/dL (2.5-4.9)
[2017-11-01 03:36] LABS: POTASSIUM 2.4 mmol/L (3.5-5.1)
[2017-11-01] MEDS ORDERED: KCL 20 MEQ/WATER INJ PREMIX 200 ML IV SCH ×2 (03:50→12:00)
[2017-11-01] MEDS: PIPER/TAZO 3.375GM/D5W PREMIX 50 ML IV SCH ×4 (06:16→23:34)
[2017-11-01 07:01] LABS: BASOPHILS % (AUTO) 0.7 % (0.0-2.0); EOSINOPHILS % (AUTO) 0.4 % (0.0-4.0); HEMATOCRIT 36.5 % (36-52); HEMOGLOBIN 12.2 g/dL (12.0-18.0); LYMPHOCYTES # (AUTO) 1.5 K/uL (2.0-11.5); MEAN CORPUSCULAR HEMOGLOBIN 27 pg (27-31); MEAN CORPUSCULAR HGB CONC 34 g/dL (33-37); MEAN CORPUSCULAR VOLUME 81.3 fL (80-94); MONOCYTES # (AUTO) 0.8 K/uL (0.8-1.0); MONOCYTES % (AUTO) 11.1 % (1.7-9.3); NEUTROPHILS # (AUTO) 4.5 K/uL (1.8-7.7); NEUTROPHILS % (AUTO) 65.8 % (42.2-75.2); PLATELET COUNT (AUTO) 120 K/uL (140-450); RED BLOOD CELL COUNT(AUTO) 4.49 MIL/uL (4.20-6.10); RED CELL DISTRIBUTION WIDTH 17.1 % (11.6-13.7); WHITE BLOOD COUNT (AUTO) 6.9 K/uL (4.8-10.8)
[2017-11-01 07:15] LABS: MAGNESIUM 1.8 mg/dL (1.8-2.4); PHOSPHORUS 2.3 mg/dL (2.5-4.9)
[2017-11-01] MEDS ORDERED: MAG SULF 2000 MG/WATER PREMIX 50 ML IV ONE (08:25)
[2017-11-01] MEDS ORDERED: INSULIN REGULAR, HUMAN 100 UNIT/ML VIAL IVP ONE (08:30)
[2017-11-01] MEDS ORDERED: INSULIN REGULAR, HUMAN 100 UNIT in NACL 0.9% 100 ML IV SCH ×2 (08:40)
[2017-11-01] MEDS ORDERED: NACL 0.9% IRR 250 ML BOTTLE IR SCH (09:00)
[2017-11-01 09:21] LABS: ANION GAP 12.8 (8-16); CARBON DIOXIDE 19.6 mmol/L (21-32); CREATININE 0.9 mg/dL (0.7-1.3)
[2017-11-01 09:23] LABS: POTASSIUM 2.4 mmol/L (3.5-5.1)
[2017-11-01] MEDS: ATORVASTATIN 20 MG TAB PO SCH (09:34)
[2017-11-01] MEDS: LACTULOSE 20 GM/30 ML UDC PO SCH (09:34)
[2017-11-01] MEDS: ASPIRIN 81 MG TAB.CHEW PO SCH (09:35)
[2017-11-01] MEDS: LACTOBACILLUS RHAMNOSUS GG 1 EACH CAP GT SCH (09:35)
[2017-11-01] MEDS: MAGNESIUM SULFATE 1GM in DEXTROSE 5% 100 ML PREMIX IV SCH ×2 (09:36→11:35)
[2017-11-01] MEDS: LISINOPRIL 5 MG TAB PO SCH (10:07)
[2017-11-01] MEDS ORDERED: ALBUTEROL SULFATE/IPRATROPIU 3 ML SOL IH PRN (11:10)
[2017-11-01] MEDS ORDERED: NACL 0.9% IRR 250 ML BOTTLE IR PRN (13:30)
[2017-11-01] MEDS: Z-GUARD PASTE TP SCH (13:36)
[2017-11-01 13:51] LABS: ANION GAP 13.8 (8-16); CARBON DIOXIDE 18.6 mmol/L (21-32); CREATININE 0.8 mg/dL (0.7-1.3)
[2017-11-01 13:58] LABS: POTASSIUM 2.4 mmol/L (3.5-5.1)
[2017-11-01] MEDS ORDERED: NACL 0.45% 1,000 ML IV SCH (14:05)
[2017-11-01] MEDS ORDERED: DEXTROSE 5% 1,000 ML IV SCH (14:20)
[2017-11-01] MEDS: INSULIN LISPRO SLIDING SCALE 100 UNITS/ML VIAL SUBQ PRN (16:42)
[2017-11-01] MEDS: metFORMIN 500 MG TAB PO SCH (17:14)
[2017-11-01 18:38] LABS: ANION GAP 16.6 (8-16); CARBON DIOXIDE 16.7 mmol/L (21-32); CREATININE 0.7 mg/dL (0.7-1.3); POTASSIUM 3.3 mmol/L (3.5-5.1)
[2017-11-01] MEDS ORDERED: DEXT 5% / NACL 0.45% 1,000 ML IV SCH (20:05)
[2017-11-01] MEDS ORDERED: INSULIN LANTUS 100 UNITS/ML 10 ML VIAL SUBQ SCH (21:05)
[2017-11-01] MEDS ORDERED: POTASSIUM CHLORIDE 20% 40 MEQ/15 ML UDC PO SCH (21:10)
[2017-11-01] MEDS ORDERED: POTASSIUM CHLORIDE 10 MEQ TABER PO ONE (21:10)
[2017-11-02] VITALS (9 sets, daily range): BP systolic 116–146; BP diastolic 73–90
[2017-11-02] MEDS: Z-GUARD PASTE TP SCH ×2 (00:43→12:18)
[2017-11-02 01:59] LABS: ANION GAP 13.4 (8-16); CARBON DIOXIDE 19.5 mmol/L (21-32)
[2017-11-02] MEDS: DEXT 5% / NACL 0.45% 1,000 ML IV SCH (02:00)
[2017-11-02 02:02] LABS: POTASSIUM 2.9 mmol/L (3.5-5.1)
[2017-11-02] MEDS ORDERED: POTASSIUM CHL 40 MEQ/ D5-1/2NS 1,000 ML IV ONE ×2 (02:20→02:40)
[2017-11-02 04:56] LABS: BASOPHILS # (AUTO) 0.1 K/uL (0.00-0.22); BASOPHILS % (AUTO) 0.9 % (0.0-2.0); EOSINOPHILS # (AUTO) 0.1 K/uL (0-0.4); HEMATOCRIT 37.7 % (36-52); HEMOGLOBIN 12.4 g/dL (12.0-18.0); LYMPHOCYTES # (AUTO) 1.5 K/uL (2.0-11.5); LYMPHOCYTES % (AUTO) 23.5 % (20.5-51.1); MEAN CORPUSCULAR HEMOGLOBIN 27 pg (27-31); MEAN CORPUSCULAR HGB CONC 33 g/dL (33-37); MEAN CORPUSCULAR VOLUME 82.1 fL (80-94); MONOCYTES # (AUTO) 0.7 K/uL (0.8-1.0); MONOCYTES % (AUTO) 10.5 % (1.7-9.3); NEUTROPHILS # (AUTO) 4.1 K/uL (1.8-7.7); NEUTROPHILS % (AUTO) 64.1 % (42.2-75.2); PLATELET COUNT (AUTO) 112 K/uL (140-450); RED BLOOD CELL COUNT(AUTO) 4.59 MIL/uL (4.20-6.10); RED CELL DISTRIBUTION WIDTH 16.7 % (11.6-13.7); WHITE BLOOD COUNT (AUTO) 6.4 K/uL (4.8-10.8)
[2017-11-02 05:03] LABS: CARBON DIOXIDE 20.9 mmol/L (21-32)
[2017-11-02] MEDS: PIPER/TAZO 3.375GM/D5W PREMIX 50 ML IV SCH ×4 (05:35→23:48)
[2017-11-02] MEDS ORDERED: LOPERAMIDE 2 MG CAP PO PRN (06:15)
[2017-11-02 06:22] LABS: CREATININE 0.9 mg/dL (0.7-1.3); POTASSIUM 2.9 mmol/L (3.5-5.1)
[2017-11-02 06:27] LABS: MAGNESIUM 1.8 mg/dL (1.8-2.4); PHOSPHORUS 2.5 mg/dL (2.5-4.9)
[2017-11-02] MEDS: BLOOD GLUCOSE MONITORING 1 DEV DEV FS SCH ×4 (06:56→20:04)
[2017-11-02] MEDS: INSULIN LISPRO SLIDING SCALE 100 UNITS/ML VIAL SUBQ PRN ×4 (07:00→20:11)
[2017-11-02] MEDS ORDERED: KCL 20 MEQ/WATER INJ PREMIX 100 ML IV SCH (08:00)
[2017-11-02] MEDS: metFORMIN 500 MG TAB PO SCH ×2 (08:24→16:52)
[2017-11-02] MEDS: LISINOPRIL 5 MG TAB PO SCH (08:25)
[2017-11-02] MEDS: LACTOBACILLUS RHAMNOSUS GG 1 EACH CAP GT SCH (08:25)
[2017-11-02] MEDS: ASPIRIN 81 MG TAB.CHEW PO SCH (08:25)
[2017-11-02] MEDS ORDERED: MAG SULF 2000 MG/WATER PREMIX 50 ML IV ONE (08:35)
[2017-11-02] MEDS ORDERED: INSULIN LANTUS 100 UNITS/ML 10 ML VIAL SUBQ SCH ×3 (09:00→20:00)
[2017-11-02] MEDS: MAGNESIUM SULFATE 1GM in DEXTROSE 5% 100 ML PREMIX IV SCH ×2 (09:12→10:07)
[2017-11-02] MEDS: NACL 0.45% 1,000 ML IV SCH ×2 (11:45→20:15)
[2017-11-02] MEDS ORDERED: glipiZIDE 5 MG TAB PO SCH (12:19)
[2017-11-02 13:24] LABS: ANION GAP 14.3 (8-16); CARBON DIOXIDE 19.9 mmol/L (21-32); CREATININE 0.8 mg/dL (0.7-1.3); POTASSIUM 3.2 mmol/L (3.5-5.1)
[2017-11-02] MEDS ORDERED: POTASSIUM CHLORIDE 20% 40 MEQ/15 ML UDC PO SCH (15:40)
[2017-11-02] MEDS: ATORVASTATIN 20 MG TAB PO SCH (16:52)
[2017-11-02] MEDS ORDERED: DEXT 5% / NACL 0.45% 1,000 ML IV SCH (18:00)
[2017-11-03] VITALS: BP 131/86
[2017-11-03] MEDS: Z-GUARD PASTE TP SCH ×2 (01:18→13:02)
[2017-11-03 04:00] VITALS: BP 114/75
[2017-11-03] MEDS: PIPER/TAZO 3.375GM/D5W PREMIX 50 ML IV SCH ×3 (05:53→18:07)
[2017-11-03] MEDS: BLOOD GLUCOSE MONITORING 1 DEV DEV FS SCH ×4 (05:53→20:58)
[2017-11-03] MEDS: NACL 0.45% 1,000 ML IV SCH ×3 (05:53→20:56)
[2017-11-03] MEDS: glipiZIDE 5 MG TAB PO SCH (05:54)
[2017-11-03] MEDS: INSULIN LISPRO SLIDING SCALE 100 UNITS/ML VIAL SUBQ PRN ×4 (06:01→21:02)
[2017-11-03 07:57] LABS: ANION GAP 13.1 (8-16); CARBON DIOXIDE 22.6 mmol/L (21-32); CREATININE 0.7 mg/dL (0.7-1.3)
[2017-11-03 08:00] VITALS: BP 134/88
[2017-11-03 08:01] LABS: BASOPHILS # (AUTO) 0.1 K/uL (0.00-0.22); BASOPHILS % (AUTO) 0.8 % (0.0-2.0); EOSINOPHILS # (AUTO) 0.2 K/uL (0-0.4); EOSINOPHILS % (AUTO) 2.1 % (0.0-4.0); HEMATOCRIT 36.2 % (36-52); HEMOGLOBIN 12.1 g/dL (12.0-18.0); LYMPHOCYTES # (AUTO) 2.1 K/uL (2.0-11.5); LYMPHOCYTES % (AUTO) 28.8 % (20.5-51.1); MEAN CORPUSCULAR HEMOGLOBIN 27 pg (27-31); MEAN CORPUSCULAR HGB CONC 33 g/dL (33-37); MEAN CORPUSCULAR VOLUME 81.7 fL (80-94); MONOCYTES # (AUTO) 0.7 K/uL (0.8-1.0); MONOCYTES % (AUTO) 9.5 % (1.7-9.3); NEUTROPHILS # (AUTO) 4.4 K/uL (1.8-7.7); NEUTROPHILS % (AUTO) 58.8 % (42.2-75.2); PLATELET COUNT (AUTO) 122 K/uL (140-450); RED BLOOD CELL COUNT(AUTO) 4.44 MIL/uL (4.20-6.10); RED CELL DISTRIBUTION WIDTH 16.5 % (11.6-13.7); WHITE BLOOD COUNT (AUTO) 7.4 K/uL (4.8-10.8)
[2017-11-03 08:03] LABS: MAGNESIUM 1.6 mg/dL (1.8-2.4); PHOSPHORUS 3.3 mg/dL (2.5-4.9)
[2017-11-03 08:34] LABS: POTASSIUM 2.7 mmol/L (3.5-5.1)
[2017-11-03] MEDS: metFORMIN 500 MG TAB PO SCH ×2 (08:37→18:07)
[2017-11-03] MEDS: LISINOPRIL 5 MG TAB PO SCH (08:37)
[2017-11-03] MEDS: LACTOBACILLUS RHAMNOSUS GG 1 EACH CAP GT SCH (08:38)
[2017-11-03] MEDS: ASPIRIN 81 MG TAB.CHEW PO SCH (08:38)
[2017-11-03] MEDS ORDERED: MAG SULF 2000 MG/WATER PREMIX 50 ML IV ONE ×2 (09:20→14:05)
[2017-11-03] MEDS: MAGNESIUM SULFATE 1GM in DEXTROSE 5% 100 ML PREMIX IV SCH ×2 (10:25→11:57)
[2017-11-03 12:00] VITALS: BP 118/65
[2017-11-03] MEDS ORDERED: KCL 20 MEQ/WATER INJ PREMIX 200 ML IV SCH (13:00)
[2017-11-03] MEDS ORDERED: KCL 20 MEQ/WATER INJ PREMIX 200 ML IV ONE (14:05)
[2017-11-03] MEDS ORDERED: POTASSIUM CHLORIDE 10 MEQ TABER PO SCH (14:15)
[2017-11-03 16:00] VITALS: BP 142/82
[2017-11-03] MEDS: ATORVASTATIN 20 MG TAB PO SCH (18:07)
[2017-11-03 20:00] VITALS: BP 125/75
[2017-11-03] MEDS: INSULIN LANTUS 100 UNITS/ML 10 ML VIAL SUBQ SCH (20:58)
[2017-11-04] MEDS: PIPER/TAZO 3.375GM/D5W PREMIX 50 ML IV SCH ×4 (00:16→17:27)
[2017-11-04 00:17] VITALS: BP 126/74
[2017-11-04] MEDS: Z-GUARD PASTE TP SCH ×2 (00:17→13:18)
[2017-11-04 04:44] VITALS: BP 122/79
[2017-11-04] MEDS: NACL 0.45% 1,000 ML IV SCH ×3 (05:15→19:35)
[2017-11-04] MEDS: BLOOD GLUCOSE MONITORING 1 DEV DEV FS SCH ×4 (05:19→20:33)
[2017-11-04] MEDS: glipiZIDE 5 MG TAB PO SCH (05:32)
[2017-11-04 08:00] VITALS: BP 124/71
[2017-11-04 08:00] LABS: BASOPHILS # (AUTO) 0.1 K/uL (0.00-0.22); BASOPHILS % (AUTO) 0.7 % (0.0-2.0); EOSINOPHILS # (AUTO) 0.2 K/uL (0-0.4); EOSINOPHILS % (AUTO) 2.4 % (0.0-4.0); HEMATOCRIT 36.7 % (36-52); HEMOGLOBIN 12.3 g/dL (12.0-18.0); LYMPHOCYTES # (AUTO) 1.6 K/uL (2.0-11.5); LYMPHOCYTES % (AUTO) 21.6 % (20.5-51.1); MEAN CORPUSCULAR HEMOGLOBIN 27 pg (27-31); MEAN CORPUSCULAR HGB CONC 34 g/dL (33-37); MEAN CORPUSCULAR VOLUME 81.8 fL (80-94); MONOCYTES # (AUTO) 0.9 K/uL (0.8-1.0); MONOCYTES % (AUTO) 12.3 % (1.7-9.3); NEUTROPHILS # (AUTO) 4.7 K/uL (1.8-7.7); PLATELET COUNT (AUTO) 140 K/uL (140-450); RED BLOOD CELL COUNT(AUTO) 4.49 MIL/uL (4.20-6.10); RED CELL DISTRIBUTION WIDTH 16.3 % (11.6-13.7); WHITE BLOOD COUNT (AUTO) 7.4 K/uL (4.8-10.8)
[2017-11-04 08:03] LABS: ANION GAP 13.5 (8-16); CARBON DIOXIDE 24.2 mmol/L (21-32); CREATININE 0.7 mg/dL (0.7-1.3)
[2017-11-04 08:10] LABS: POTASSIUM 2.7 mmol/L (3.5-5.1)
[2017-11-04 08:13] LABS: MAGNESIUM 1.5 mg/dL (1.8-2.4); PHOSPHORUS 3.5 mg/dL (2.5-4.9)
[2017-11-04] MEDS ORDERED: POTASSIUM CHLORIDE 10 MEQ TABER PO SCH ×2 (09:00)
[2017-11-04] MEDS ORDERED: MAGNESIUM OXIDE 400 MG TAB PO SCH (09:00)
[2017-11-04] MEDS ORDERED: MAG SULF 2000 MG/WATER PREMIX 50 ML IV ONE (09:25)
[2017-11-04] MEDS ORDERED: POTA10TE30 PO (09:39)
[2017-11-04] MEDS ORDERED: GLIP5TAB4 PO (09:39)
[2017-11-04] MEDS ORDERED: ATOR20TA40 PO (09:39)
[2017-11-04] MEDS ORDERED: LISI-424 PO (09:39)
[2017-11-04] MEDS ORDERED: LANTUS SUBQ (09:39)
[2017-11-04] MEDS ORDERED: MAG400 PO (09:39)
[2017-11-04] MEDS ORDERED: METF850T PO (09:39)
[2017-11-04] MEDS ORDERED: ASPI81CT95 PO (09:39)
[2017-11-04] MEDS: LACTOBACILLUS RHAMNOSUS GG 1 EACH CAP GT SCH (10:25)
[2017-11-04] MEDS: ASPIRIN 81 MG TAB.CHEW PO SCH (10:25)
[2017-11-04] MEDS: LISINOPRIL 5 MG TAB PO SCH (10:26)
[2017-11-04] MEDS: metFORMIN 500 MG TAB PO SCH ×2 (10:26→16:50)
[2017-11-04] MEDS: MAGNESIUM SULFATE 1GM in DEXTROSE 5% 100 ML PREMIX IV SCH ×2 (10:28→13:14)
[2017-11-04 12:00] VITALS: BP 118/89
[2017-11-04] MEDS: INSULIN LISPRO SLIDING SCALE 100 UNITS/ML VIAL SUBQ PRN (12:34)
[2017-11-04] MEDS ORDERED: KCL 20 MEQ/WATER INJ PREMIX 200 ML IV SCH (13:00)
[2017-11-04 16:00] VITALS: BP 125/79
[2017-11-04] MEDS: ATORVASTATIN 20 MG TAB PO SCH (16:50)
[2017-11-04 20:00] VITALS: BP 133/80
[2017-11-04] MEDS: INSULIN LANTUS 100 UNITS/ML 10 ML VIAL SUBQ SCH (20:00)
[2017-11-09 16:08] LABS: T4 (THYROXINE) 4.2 ug/dL (4.5-12.0)
== END 2017-11-04 20:40 | disposition home or self-care (01) | DRG 720 ==
LOC: MED 17:17 → MIC 20:14 → MTU 11-02 18:50
PROVIDERS: ADMIT General Practice; ATTEND General Practice
PROC: 5A1945Z Respiratory Ventilation, 24-96 Consecutive Hours (ICD-10-PCS; principal; 2017-10-29)
PROC: 0BH17EZ Insertion of Endotracheal Airway into Trachea, Via Natural or Artificial Opening (ICD-10-PCS; 2017-10-29)
PROC: 02HV33Z Insertion of Infusion Device into Superior Vena Cava, Percutaneous Approach (ICD-10-PCS; 2017-10-29)
PROC: B548ZZA Ultrasonography of Superior Vena Cava, Guidance (ICD-10-PCS; 2017-10-29)
DX: A41.9 Sepsis, unspecified organism (principal); N17.0 Acute kidney failure with tubular necrosis; J96.01 Acute respiratory failure with hypoxia; J69.0 Pneumonitis due to inhalation of food and vomit; E11.10 Type 2 diabetes mellitus with ketoacidosis without coma; D68.59 Other primary thrombophilia; E11.69 Type 2 diabetes mellitus with other specified complication; E66.01 Morbid (severe) obesity due to excess calories; E86.0 Dehydration; E87.6 Hypokalemia; I10 Essential (primary) hypertension; E78.5 Hyperlipidemia, unspecified; K21.9 Gastro-esophageal reflux disease without esophagitis; E86.9 Volume depletion, unspecified; F12.10 Cannabis abuse, uncomplicated; I16.1 Hypertensive emergency; S39.92XA Unspecified injury of lower back, initial encounter; X58.XXXA Exposure to other specified factors, initial encounter; E83.42 Hypomagnesemia; Z68.36 Body mass index [BMI] 36.0-36.9, adult; Z79.82 Long term (current) use of aspirin; Z79.899 Other long term (current) drug therapy; Z82.49 Family history of ischemic heart disease and other diseases of the circulatory system; Y93.89 Activity, other specified; Y92.89 Other specified places as the place of occurrence of the external cause; Y99.8 Other external cause status
CPT/HCPCS: 31500; 36415; 36600; 51702; 71045; 74018; 80048; 80053; 80305; 81001; 82140; 82150; 82550; 82803; 82948; 83036; 83605; 83690; 83735; 83880; 84100; 84134; 84436; 84439; 84443; 84479; 84484; 85025; 85610; 85730; 87040; 87070; 87081; 87086; 87205; 92610; 93005; 94003; 96361; 96365; 96375; 97110; 97116; 97530; 99291; C1751; G0482; J0696; J1200; J1630; J1815; J2060; J2270; J2405; J2543; J2704; J2765; J3475; J3480; J3490; J7030; J7042; J7060; Q0092

== ENCOUNTER 2020-10-21 13:03 | Inpatient (IN) | payer OTHER, SELFPAY ==
[~2020-10-21] VITALS: Ht 180.3 cm; Wt 78.0 kg
[~2020-10-21 13:03] MED LIST changes: +CALC-55 PO; -CALC-846 PO; +GLIP5TAB14 PO; -HUM7030 SUBQ; -LISI-424 PO; +LISI-648 PO; -MAG400 PO; +MAGN400T61 PO; +POTA10TE30 PO
--- NOTE | 2020-10-21 13:16 | NUR ---
TO ED BED 4 WITH A STEADY GAIT.
[2020-10-21 13:21] VITALS: BP 170/97
--- NOTE | 2020-10-21 13:25 | NUR ---
PT AMB TO ER BED 4. C/O N/V, SOB X 8PM LASTNIGHT. AC 529, UA DONE, ER MD TO AL
[2020-10-21] MEDS ORDERED: NACL 0.9% 1,000 ML IV SCH (13:30)
--- NOTE | 2020-10-21 14:00 | NUR ---
RT AT BEDSIDE GETTING ABG
--- NOTE | 2020-10-21 14:02 | NUR ---
RADIOLOGY AT BEDSIDE COMPLETING CXR
--- NOTE | 2020-10-21 14:03 | NUR ---
IV ESTABLISHED. BLOOD DRAWN AND GIVEN TO C D REACTOR OPERATOR. IVF RUNNING
[2020-10-21 14:04] LABS: BASOPHILS # (AUTO) 0.1 K/uL (0.00-0.22); BASOPHILS % (AUTO) 0.6 % (0.0-2.0); HEMATOCRIT 56.4 % (36-52); HEMOGLOBIN 19.2 g/dL (12.0-18.0); LYMPHOCYTES # (AUTO) 1.1 K/uL (2.0-11.5); LYMPHOCYTES % (AUTO) 10.8 % (20.5-51.1); MEAN CORPUSCULAR HEMOGLOBIN 30 pg (27-31); MEAN CORPUSCULAR HGB CONC 34 g/dL (33-37); MEAN CORPUSCULAR VOLUME 88.3 fL (80-94); MONOCYTES # (AUTO) 0.5 K/uL (0.8-1.0); MONOCYTES % (AUTO) 4.7 % (1.7-9.3); NEUTROPHILS # (AUTO) 8.4 K/uL (1.8-7.7); NEUTROPHILS % (AUTO) 83.9 % (42.2-75.2); PLATELET COUNT (AUTO) 275 K/uL (140-450); RED BLOOD CELL COUNT(AUTO) 6.38 MIL/uL (4.20-6.10); RED CELL DISTRIBUTION WIDTH 13.3 % (11.6-13.7)
[2020-10-21 14:16] LABS: ANION GAP 33.4 (8-16); CREATININE 1.2 mg/dL (0.6-1.3); POTASSIUM 4.6 mmol/L (3.5-5.1); TOTAL BILIRUBIN 0.6 mg/dL (0.0-1.0)
[2020-10-21 14:21] LABS: CARBON DIOXIDE 8.2 mmol/L (21-32)
[2020-10-21] MEDS ORDERED: INSULIN REGULAR, HUMAN 100 UNIT/ML VIAL IVP ONE (14:40)
[2020-10-21] MEDS ORDERED: INSULIN REGULAR, HUMAN 100 UNIT in NACL 0.9% 100 ML IV ONE ×2 (14:40)
[2020-10-21] MEDS ORDERED: MAG SULF 2000 MG/WATER PREMIX 50 ML IV PRN (15:20)
[2020-10-21] MEDS ORDERED: MAGNESIUM OXIDE 400 MG TAB PO PRN (15:20)
[2020-10-21] MEDS ORDERED: ACETAMINOPHEN 325 MG TAB PO PRN (15:20)
[2020-10-21] MEDS ORDERED: KCL 20 MEQ/WATER INJ PREMIX 200 ML IV PRN (15:20)
[2020-10-21] MEDS ORDERED: MORPHINE SULFATE 4 MG/ML SYR IVP PRN (15:20)
[2020-10-21] MEDS ORDERED: HYDROcodone/APAP 5/325 MG 1 TAB TAB PO PRN (15:20)
--- NOTE | 2020-10-21 19:31 | NUR ---
Pt report given to ANAND HERNÁNDEZ. Transfer of care at this time.
--- NOTE | 2020-10-21 20:29 | NUR ---
PT. LAYING COMFORTABLY IN SUPINE POSITION, VOICES NO COMPLAINTS AT THIS TIME. NO DISTRESS NOTED. WILL CONTINUE TO MONITOR
--- NOTE | 2020-10-21 20:35 | NUR ---
REPORT CALLED TO BETTY MAGALLON (ICU). PT. WILL BE GOING TO ICU 5.
--- NOTE | 2020-10-21 20:47 | NUR ---
Patient will be admitted to care of DR. SOLANO. Admitted to ICU. PT. TAKENT TO ROOM ICU BED 5. Belongings list completed. Report to BETTY MAGALLON.
--- NOTE | 2020-10-21 20:50 | NUR ---
RECEIVED PT FROM ER VIA [facility].PT AMBULATED TOWARDS BED W/STEADY GAIT.PT ALERT AND ORIENTED X4.SR NOTED ON MONITOR.ON ROOM AIR.DENIES SOB.MAINTAINED ON NOTHING BY MOUTH.PT ABLE TO VOID FREELY.DENIES PAIN AT THIS TIME.ON ASSESSMENT,PT MENTIONED A LESION TO THE TIP OF HIS PENIS; CHECKED BY BETTY MAGALLON AND SERVICE NOW DEVELOPER, NOTED SLIGHT REDNESS WITH CRUSTY TIP; WILL NOTIFY .
[2020-10-21 21:00] VITALS: BP 144/98
[2020-10-21] MEDS: BLOOD GLUCOSE MONITORING 1 DEV DEV FS SCH ×3 (21:00→23:00)
[2020-10-21 22:00] VITALS: BP 129/82
[2020-10-21] MEDS: DEXT 5% / NACL 0.45% 1,000 ML IV SCH ×2 (22:10→23:00)
[2020-10-21] MEDS ORDERED: INSULIN REGULAR, HUMAN 100 UNIT in NACL 0.9% 100 ML IV SCH ×2 (22:10)
--- NOTE | 2020-10-21 22:15 | NUR ---
SEEN BY DR HERNADEZ; UPDATED ON PTS PRESENT CONDITION; NOTIFIED PHYSICIAN REGARDING THE COMPLAINT OF THE PTS PENIS.AREA EXAMINED; NEW ORDERS RECEIVED.CARRIED OUT
[2020-10-21] MEDS: NACL 0.9% 1,000 ML IV SCH (23:05)
--- NOTE | 2020-10-21 23:30 | NUR ---
URINE SPECIMEN OBTAINED AND SENT TO LAB ORDERED
[2020-10-21 23:40] LABS: APPEARANCE,URINE SL CLOUDY (CLEAR); BILIRUBIN,URINE 2+ (NEGATIVE); BLOOD, URINE 1+ (NEGATIVE); COLOR,URINE YELLOW (YELLOW); LEUKOCYTE ESTERASE ,URINE TRACE (NEGATIVE); NITRITE, URINE NEGATIVE (NEGATIVE); UGLUCOSE 2+ (NEGATIVE)
[2020-10-21] MEDS ORDERED: cefTRIAXone 2,000 MG VIAL ONE (23:43)
[2020-10-21 23:47] LABS: WBC,URINE TOO MANY TO COUNT /HPF (0-5)
[2020-10-22] VITALS (14 sets, daily range): BP systolic 110–145; BP diastolic 61–92
[2020-10-22] MEDS: cefTRIAXone 2,000 MG in DEXTROSE 5% 100 ML IV SCH ×2 (00:02→22:58)
[2020-10-22 00:50] LABS: CARBON DIOXIDE 16.1 mmol/L (21-32); CREATININE 0.9 mg/dL (0.6-1.3); POTASSIUM 3.1 mmol/L (3.5-5.1)
[2020-10-22 00:55] LABS: MAGNESIUM 1.5 mg/dL (1.8-2.4)
[2020-10-22] MEDS: NACL 0.9% 1,000 ML IV SCH ×2 (01:00→08:10)
[2020-10-22] MEDS: DEXT 5% / NACL 0.45% 1,000 ML IV SCH (01:00)
[2020-10-22] MEDS: BLOOD GLUCOSE MONITORING 1 DEV DEV FS SCH ×14 (01:00→21:49)
[2020-10-22] MEDS: ONDANSETRON 4 MG/2 ML VIAL IVP PRN ×2 (02:39→22:42)
--- NOTE | 2020-10-22 02:39 | NUR ---
PT VOMITED MODERATE AMOUNT OF BROWNISH WATERY VOMITUS; ZOFRAN GIVEN ORDERED.WILL CONTINUE TO CLOSELY MONITOR PT
[2020-10-22] MEDS: POTASSIUM CHLORIDE 10 MEQ TABER PO PRN ×2 (03:00→11:45)
[2020-10-22 06:10] LABS: ANION GAP 16.9 (8-16); CARBON DIOXIDE 17.2 mmol/L (21-32); CREATININE 0.9 mg/dL (0.6-1.3); POTASSIUM 3.1 mmol/L (3.5-5.1); TOTAL BILIRUBIN 0.3 mg/dL (0.0-1.0)
[2020-10-22 06:13] LABS: MAGNESIUM 1.6 mg/dL (1.8-2.4); PHOSPHORUS 1.9 mg/dL (2.5-4.9)
[2020-10-22 06:14] LABS: BASOPHILS # (AUTO) 0.1 K/uL (0.00-0.22); BASOPHILS % (AUTO) 0.8 % (0.0-2.0); EOSINOPHILS # (AUTO) 0.1 K/uL (0-0.4); EOSINOPHILS % (AUTO) 0.6 % (0.0-4.0); HEMOGLOBIN 16.9 g/dL (12.0-18.0); LYMPHOCYTES # (AUTO) 1.4 K/uL (2.0-11.5); LYMPHOCYTES % (AUTO) 15.2 % (20.5-51.1); MEAN CORPUSCULAR HEMOGLOBIN 29 pg (27-31); MEAN CORPUSCULAR HGB CONC 35 g/dL (33-37); MONOCYTES # (AUTO) 0.9 K/uL (0.8-1.0); MONOCYTES % (AUTO) 9.5 % (1.7-9.3); NEUTROPHILS # (AUTO) 6.8 K/uL (1.8-7.7); NEUTROPHILS % (AUTO) 73.9 % (42.2-75.2); PLATELET COUNT (AUTO) 236 K/uL (140-450); RED BLOOD CELL COUNT(AUTO) 5.77 MIL/uL (4.20-6.10); WHITE BLOOD COUNT (AUTO) 9.1 K/uL (4.8-10.8)
[2020-10-22 08:09] LABS: ANION GAP 13.8 (8-16); CARBON DIOXIDE 19.5 mmol/L (21-32); CREATININE 0.9 mg/dL (0.6-1.3); POTASSIUM 3.3 mmol/L (3.5-5.1)
[2020-10-22 08:12] LABS: MAGNESIUM 1.8 mg/dL (1.8-2.4); PHOSPHORUS 1.5 mg/dL (2.5-4.9)
--- NOTE | 2020-10-22 08:30 | NUR ---
@0710 Assumed pt care report received from Vickie HERNÁNDEZ. Met pt eyes closed drowsy generalized weakness arousable coherent with conversation. Ongoing Insulin drip gtt as per MD's order on room air vitals signs stable denies pain and no sign of distress noted. Education on care plan and he verbalized understanding. Net blood sugar was 175 no changes made to the drip.
--- NOTE | 2020-10-22 08:57 | NUR ---
PATIENT HAS BEEN SCREENED AND CATEGORIZED HIGH NUTRITION RISK. PATIENT WILL BE SEEN WITHIN 1-2 DAYS OF ADMISSION. 10/22/20-10/23/[address]
--- NOTE | 2020-10-22 09:04 | NUR ---
DC [age] YRS OLD MALE PATIENT WAS ADMITTED FROM HOME WITH A DX OF DKA . PT HAS A HX OF DM, GERD, AND HTN. CXR NO EVIDENCE FOR ACUTE CARDIOPULMONARY DISEASE. RAPID COVID TEST NEGATIVE. ON INSULIN DRIP, ROCEPHIN IV ABX. CONSULTED WITH CRITICAL CARE DR ZIMMERMAN. DC PLAN TO GO HOME WHEN STABLE CM TO FOLLOW
[2020-10-22] MEDS: ENOXAPARIN 40 MG/0.4 ML SYR SUBQ SCH (09:51)
[2020-10-22] MEDS ORDERED: DEXTROSE 50% 50 ML SYR IVP PRN (09:55)
[2020-10-22] MEDS: INSULIN LANTUS 100 UNITS/ML 10 ML VIAL SUBQ SCH (10:13)
[2020-10-22] MEDS ORDERED: MORPHINE SULFATE 2 MG/ML SYR IVP PRN (11:00)
[2020-10-22] MEDS: INSULIN LISPRO SLIDING SCALE 100 UNITS/ML VIAL SUBQ PRN ×3 (11:44→23:26)
--- NOTE | 2020-10-22 12:00 | NUR ---
@1045 Dr Salazar Addendum: 10/22/20 at 1949 by Agency 03 BETTY HERNÁNDEZ rounds on the pt, order received to down grade to telemetry, d/c all the iv fluids, and Insulin. Lantus 8 units sq given blood sugar was 155. pt awake alert no complain then ate Lunch was happy because being NPO since admission. @ 1810 Report given to Christina HERNÁNDEZ as pt transfer to Med surg/Tele room 104 as at this time pt awake alert oriented ambulatory, in wheelchair vitals signs stable afebrile and no complain
[2020-10-22 12:24] LABS: ANION GAP 14.6 (8-16); CARBON DIOXIDE 20.1 mmol/L (21-32); CREATININE 0.9 mg/dL (0.6-1.3); POTASSIUM 3.7 mmol/L (3.5-5.1)
[2020-10-22 12:27] LABS: MAGNESIUM 1.7 mg/dL (1.8-2.4); PHOSPHORUS 1.7 mg/dL (2.5-4.9)
--- NOTE | 2020-10-22 13:41 | NUR ---
10/22/20 RD INITIAL ASSESSMENT COMPLETED PLEASE REFER TO NUTRITION ASSESSMENT UNDER CARE ACTIVITY FOR ESTIMATED NUTRITIONAL NEEDS. 1. CONTINUE [facility] DIET TOLERATED 2. RD PROVIDED NUTRITION EDUCATION ON DIABETES. PT ACCEPTED 3. RD TO FOLLOW-UP 3-5 DAYS, MODERATE RISK SHERITA MUELLER RD
--- NOTE | 2020-10-22 18:30 | NUR ---
PT ARRIVED TO UNIT VIA WHEELCHAIR FROM THE ICU. PT IS AWAKE AND ALERT. A&OX4. ON RA WITH BREATHING UNLABORED. URINAL AT THE BEDSIDE FOR VOIDING. CONTINENT OF THE BOWEL AND BLADDER. SKIN IS WARM, DRY, AND INTACT. IV IS IN THE RIGHT FOREARM 20 GAUGE SALINE LOCKED AND LEFT AC 18 GAUGE SALINE LOCKED. PT IS STABLE AT THIS TIME. PLAN OF CARE DISCUSSED.
--- NOTE | 2020-10-22 19:10 | NUR ---
ENDORSED PT TO PHOTOGRAPH DEVELOPER NURSE FOR CONTINUITY OF CARE. PT IS STABLE AT THIS TIME. PLAN OF CARE DISCUSSED.
--- NOTE | 2020-10-22 19:30 | NUR ---
RECEIVED CARE AND REPORT FROM DAYSHIFT RN. PATIENT ALERT AND ORIENTED X4 TO PERSON, PLACE TIME AND EVENT. PATIENT ON ROOM AIR 98% OXYGEN SATURATION, HOB 3O DEGREES, DENIES SOB, DENIES PAIN, DENIES DIFFICULTY BREATHING WHEN ASKED. NO OBVIOUS SIGNS OF DISTRESS OBSERVED WHILE AT THE BEDSIDE. PATIENT CONNECTED TO TELE BRIDGE GAME DIRECTOR, NSR/ST. PATIENT ABLE TO USE THE BATHROOM WITH RN ASSISTANCE. PATIENT IV SITES INCLUDE RIGHT FA 20G AND LEFT AC 18G, SITES INTACT, DRESSINGS DRY AND FLUSHING WELL. NO IV DRIPS RUNNING UPON ARRIVAL TO THE BEDSIDE. PATIENT SKIN IS MOSTLY INTACT, LESION ON TIP OF PENIS. PATIENT BED LOCKED AND LOWERED INTO A POSITION OF SAFETY. OFF LOADED WITH USE OF PILLOWS AND FREQUENT REPOSITIONING Q2 HOURS. SAFETY MEASURES IN PLACE, NURSE CALL LIGHT REMOTE IN PATIENT HAND, EDUCATED ON HOW TO USE AND ORIENTED TO ROOM ENVIRONMENT. PROMOTING A RESTFUL HEALING ENVIRONMENT WITH DECREASED STIMULI IN THE ROOM. WILL CONTINUE TO CLOSELY MONITOR, REASSESS OFTEN AND FREQUENTLY ROUND.
--- NOTE | 2020-10-22 21:10 | NUR ---
PATIENT ASLEEP, RESTING IN A POSITION OF COMFORT, NO SIGNS OF DISTRESS OBSERVED WHILE AT THE BEDSIDE, SYMMETRICAL CHEST RISE AND FALL PRESENT, SAFETY MEASURES IN PLACE. WILL CONTINUE TO CLOSELY MONITOR AND FREQUENTLY ROUND.
--- NOTE | 2020-10-22 22:25 | NUR ---
SCHEDULED MEDICATION GIVEN ORDERED BY THE MD, NO SIGNS OF DISTRESS OBSERVED WHILE AT THE BEDSIDE, WILL CONTINUE TO CLOSELY MONITOR AND FREQUENTLY ROUND.
--- NOTE | 2020-10-22 22:40 | NUR ---
CALLED/PAGED FOR DR. SOLANO REGARDING PATIENT BLOOD SUGAR. AWAITING CALL BACK.
[2020-10-22] MEDS ORDERED: cefTRIAXone 2,000 MG VIAL ONE (22:50)
--- NOTE | 2020-10-22 23:03 | NUR ---
PAGED/CALLED FOR DR. NUÑEZ HAMPER MAKER REGARDING BLOOD GLUCOSE, MD RESPONDED STATING TO PLACE ORDER FOR LANTUS 10 UNITS QHS, WILL DERECK OUT ORDER.
[2020-10-22] MEDS ORDERED: INSULIN LANTUS 100 UNITS/ML 10 ML VIAL SUBQ ONE (23:22)
[2020-10-23] VITALS: BP 122/74
--- NOTE | 2020-10-23 00:35 | NUR ---
PATIENT ASLEEP, RESTING IN A POSITION OF COMFORT, NO OBVIOUS SIGNS OF DISTRESS OBSERVED WHILE AT THE BEDSIDE. SYMMETRICAL CHEST RISE AND FALL OBSERVED, VS STABLE, OXYGEN SATURATION 98%, RR 16. WILL CONTINUE TO CLOSELY MONITOR AND FREQUENTLY ROUND.
--- NOTE | 2020-10-23 02:13 | NUR ---
PATIENT SLEEPING, RESTING COMFORTABLY, NO SIGNS OF DISTRESS OBSERVED WHILE AT THE BEDSIDE, SYMMETRICAL CHEST RISE AND FALL, OXYGEN SATURATION 99%, RR 17. SAFETY MEASURES IN PLACE. WILL CONTINUE TO CLOSELY MONITOR AND FREQUENTLY ROUND.
[2020-10-23 04:00] VITALS: BP 121/81
--- NOTE | 2020-10-23 04:16 | NUR ---
MORNING CARE PROVIDED, PATIENT RESTING IN A POSITION OF COMFORT. NO OBVIOUS SIGNS OF DISTRESS OBSERVED WHILE AT THE BEDSIDE. SYMMETRICAL CHEST RISE AND FALL, RR 16, ROOM AIR OXYGEN SATURATION 97%, HOB 30 DEGREES, AIRWAY OPEN, CLEAR AND MAINTAINABLE, VS STABLE. SAFETY MEASURES IN PLACE. WILL CONTINUE TO CLOSELY MONITOR AND FREQUENTLY ROUND.
[2020-10-23] MEDS: BLOOD GLUCOSE MONITORING 1 DEV DEV FS SCH ×3 (06:47→16:00)
[2020-10-23] MEDS: INSULIN LISPRO SLIDING SCALE 100 UNITS/ML VIAL SUBQ PRN ×3 (06:49→11:54)
[2020-10-23 06:53] LABS: BASOPHILS % (AUTO) 0.6 % (0.0-2.0); EOSINOPHILS # (AUTO) 0.1 K/uL (0-0.4); EOSINOPHILS % (AUTO) 1.1 % (0.0-4.0); HEMATOCRIT 49.3 % (36-52); HEMOGLOBIN 16.8 g/dL (12.0-18.0); LYMPHOCYTES # (AUTO) 2.3 K/uL (2.0-11.5); LYMPHOCYTES % (AUTO) 27.3 % (20.5-51.1); MEAN CORPUSCULAR HEMOGLOBIN 29 pg (27-31); MEAN CORPUSCULAR HGB CONC 34 g/dL (33-37); MEAN CORPUSCULAR VOLUME 85.3 fL (80-94); MONOCYTES # (AUTO) 0.9 K/uL (0.8-1.0); PLATELET COUNT (AUTO) 241 K/uL (140-450); RED BLOOD CELL COUNT(AUTO) 5.77 MIL/uL (4.20-6.10); RED CELL DISTRIBUTION WIDTH 13.2 % (11.6-13.7); WHITE BLOOD COUNT (AUTO) 8.4 K/uL (4.8-10.8)
[2020-10-23 07:11] LABS: ALBUMIN 2.8 g/dL (3.4-5.0); ANION GAP 16.4 (8-16); CARBON DIOXIDE 20.1 mmol/L (21-32); CREATININE 0.8 mg/dL (0.6-1.3); MAGNESIUM 1.6 mg/dL (1.8-2.4); POTASSIUM 3.5 mmol/L (3.5-5.1); TOTAL BILIRUBIN 0.5 mg/dL (0.0-1.0)
--- NOTE | 2020-10-23 07:20 | NUR ---
RECEIVED BEDSIDE REPORT FROM CRYSTAL FLAT GRINDER NURSE. PATIENT FOUND L LATERAL, SLEEPING IN BED, MANAGER ADVANCED AT BEDSIDE OBTAINING VITAL SIGNS. PATIENT ALERT, ANSWERS TO NAME, ABLE TO MAKE NEEDS KNOWN, BREATHING EVEN AND UNLABORED, NO SIGNS OF ACUTE DISTRESS NOTED. L AC 18G, R FA 20G, INFUSING NS @ 10 ML/HR. NOTCH GRINDER IN PLACE, SAFETY MEASURES IN PLACE.
--- NOTE | 2020-10-23 07:29 | NUR ---
REPORT AND CARE ENDORSED TO DAYSHIFT RN, VS STABLE.
[2020-10-23 08:00] VITALS: BP 133/90
[2020-10-23] MEDS: ENOXAPARIN 40 MG/0.4 ML SYR SUBQ SCH (09:00)
--- NOTE | 2020-10-23 09:58 | NUR ---
BLOOD SUGAR CHECKED, 436, LANTUS ADMINISTERED PER MD ORDER. DR RUSS BOWMAN, AWAITING ORDERS.
[2020-10-23] MEDS: INSULIN LANTUS 100 UNITS/ML 10 ML VIAL SUBQ SCH (10:19)
[2020-10-23] MEDS: SODIUM PHOS / POTASSIUM PHOS 1 PKT PDR PO SCH ×3 (10:25→17:00)
[2020-10-23] MEDS ORDERED: INSULIN LANTUS 100 UNITS/ML 10 ML VIAL SUBQ SCH ×3 (10:30→21:00)
--- NOTE | 2020-10-23 10:34 | NUR ---
DR SOLANO ROUNDING ON PATIENT AT THIS TIME. PER DR SOLANO, ADMINISTER 10 UNITS HUMALOG PER SLIDING SCALED, AND AN ADDITIONAL 10UNITS LANTUS ONCE AT THIS TIME.
--- NOTE | 2020-10-23 11:51 | NUR ---
PERSONAL BELONGINGS BROUGHT IN BY PATIENT FAMILY, DELIVERED TO PT ROOM.
[2020-10-23 12:00] VITALS: BP 122/86
--- NOTE | 2020-10-23 15:36 | NUR ---
PT REQUESTING TO LEAVE AMA. RISKS DISCUSSED AT LENGTH WITH PATIENT WHO STILL INSISTS ON LEAVING AMA. DR SOLANO MADE AWARE.
[2020-10-23 16:00] VITALS: BP 123/84
--- NOTE | 2020-10-23 17:02 | NUR ---
PT CONTINUED TO INSIST ON LEAVING AMA. DR SOLANO MADE AWARE OF PATIENT LEAVING AMA. SENIOR FINANCIAL ANALYST AND IV ACCESS REMOVED AT THIS TIME - BOTH IV CANNULAS INTACT. EDUCATION AGAINST LEAVING AMA AND RISKS DISCUSSED ONCE AGAIN WITH PATIENT, STILL WISHES TO LEAVE AMA, REFUSING ANY FURTHER MEDICATIONS OR TREATMENT.
[2020-10-24] MEDS ORDERED: INSULIN LANTUS 100 UNITS/ML 10 ML VIAL SUBQ SCH (09:00)
== END 2020-10-23 17:00 | disposition left against medical advice (07) | DRG 420 ==
LOC: MED 13:03 → MTU 15:23 → MIC 20:40 → MTU 10-22 17:58
PROVIDERS: ADMIT Internal Medicine; ATTEND Internal Medicine
DX: E11.10 Type 2 diabetes mellitus with ketoacidosis without coma (principal); N17.9 Acute kidney failure, unspecified; Z20.822 Contact with and (suspected) exposure to COVID-19; E86.0 Dehydration; K21.9 Gastro-esophageal reflux disease without esophagitis; I10 Essential (primary) hypertension; Z79.82 Long term (current) use of aspirin; Z79.4 Long term (current) use of insulin; Z79.899 Other long term (current) drug therapy; Z84.1 Family history of disorders of kidney and ureter; Z82.49 Family history of ischemic heart disease and other diseases of the circulatory system
CPT/HCPCS: 36415; 36600; 71045; 80048; 80053; 81001; 82803; 82948; 83036; 83690; 83735; 84100; 85025; 87070; 87081; 87086; 87491; 96361; 96365; 96366; 99291; J0696; J1650; J1815; J2405; J3475; J7060; Q0092

== ENCOUNTER 2021-02-04 17:30 | Emergency (ER) | payer OTHER, SELFPAY ==
[~2021-02-04] VITALS: Ht 177.8 cm; Wt 99.8 kg
[~2021-02-04 17:30] MED LIST changes: -LISI-648 PO; +LISI5TAB24 PO; +POTA10TA70 PO; -POTA10TE30 PO
[2021-02-04 17:37] VITALS: BP 147/92
[2021-02-04 18:08] LABS: BASOPHILS % (AUTO) 0.5 % (0.0-2.0); EOSINOPHILS % (AUTO) 0.3 % (0.0-4.0); HEMATOCRIT 51.8 % (36-52); HEMOGLOBIN 17.9 g/dL (12.0-18.0); LYMPHOCYTES # (AUTO) 1.7 K/uL (2.0-11.5); LYMPHOCYTES % (AUTO) 18.1 % (20.5-51.1); MEAN CORPUSCULAR HEMOGLOBIN 30 pg (27-31); MEAN CORPUSCULAR HGB CONC 35 g/dL (33-37); MONOCYTES # (AUTO) 0.9 K/uL (0.8-1.0); MONOCYTES % (AUTO) 9.2 % (1.7-9.3); NEUTROPHILS # (AUTO) 6.8 K/uL (1.8-7.7); NEUTROPHILS % (AUTO) 71.9 % (42.2-75.2); PLATELET COUNT (AUTO) 281 K/uL (140-450); RED BLOOD CELL COUNT(AUTO) 6.02 MIL/uL (4.20-6.10); RED CELL DISTRIBUTION WIDTH 12.6 % (11.6-13.7); WHITE BLOOD COUNT (AUTO) 9.4 K/uL (4.8-10.8)
[2021-02-04] MEDS ORDERED: VANCOMYCIN 1,000 MG in DEXTROSE 5% 250 ML IV ONE (18:10)
[2021-02-04] MEDS ORDERED: AMPICILLIN/SULBACTAM 3 GM in NACL 0.9% 100 ML IV ONE (18:10)
[2021-02-04] MEDS ORDERED: NACL 0.9% 1,000 ML IV ONE (18:10)
[2021-02-04] MEDS ORDERED: AMPICILLIN/SULBACTAM 3 GM VIAL ONE (18:11)
[2021-02-04] MEDS ORDERED: VANCOMYCIN 1,000 MG VIAL ONE (18:11)
[2021-02-04 18:35] LABS: ALBUMIN 3.7 g/dL (3.4-5.0); ANION GAP 14.9 (8-16); CARBON DIOXIDE 28.2 mmol/L (21-32); CREATININE 1.2 mg/dL (0.6-1.3); POTASSIUM 4.1 mmol/L (3.5-5.1); TOTAL BILIRUBIN 0.6 mg/dL (0.0-1.0)
[2021-02-04] MEDS ORDERED: LACTATED RINGERS 1,000 ML IV ONE (18:45)
[2021-02-05] MEDS ORDERED: NACL 0.9% 1,000 ML IV ONE ×2
[2021-02-05] MEDS ORDERED: INSULIN REGULAR, HUMAN 100 UNIT/ML VIAL IVP ONE
[2021-02-05 01:24] LABS: ANION GAP 11.3 (8-16); CARBON DIOXIDE 28.2 mmol/L (21-32); CREATININE 0.7 mg/dL (0.6-1.3); POTASSIUM 3.5 mmol/L (3.5-5.1)
[2021-02-05] MEDS ORDERED: AMPICILLIN/SULBACTAM 3 GM VIAL IV ONE (07:35)
[2021-02-05] MEDS ORDERED: VANCOMYCIN 1,000 MG in DEXTROSE 5% 250 ML IV ONE (07:35)
[2021-02-05 09:05] VITALS: BP 122/70
== END 2021-02-05 09:04 | disposition left against medical advice (07) ==
LOC: MED 17:30
DX: L02.01 Cutaneous abscess of face (principal); E11.9 Type 2 diabetes mellitus without complications; K21.9 Gastro-esophageal reflux disease without esophagitis; I10 Essential (primary) hypertension; Z79.4 Long term (current) use of insulin; Z79.899 Other long term (current) drug therapy
CPT/HCPCS: 36415; 70487; 80048; 80053; 83605; 85025; 87040; 96361; 96365; 96366; 96367; 96375; 99291; J0295; J1815; J3370; J7030; Q9967

== ENCOUNTER 2023-06-01 12:35 | Observation (INO) | payer OTHER ==
[~2023-06-01] VITALS: Ht 175.3 cm; Wt 81.6 kg
[~2023-06-01 12:35] MED LIST changes: -ASPI81CT95 PO; -ATOR20TA40 PO; -CALC-55 PO; -GLIP5TAB14 PO; -LISI5TAB24 PO; -MAGN400T61 PO; +METF-713 PO; -METF850T PO; -POTA10TA70 PO
[2023-06-01 13:04] VITALS: BP 127/85; RESP 19; TEMP 98.3; O2SAT 96
[2023-06-01] MEDS: NACL 0.9% 1,000 ML IV SCH ×2 (13:41→16:05)
[2023-06-01 13:59] LABS: ANION GAP 15.8 (8-16); CALCIUM 8.2 mg/dL (8.5-10.1); CARBON DIOXIDE 26.5 mmol/L (21-32); CREATININE 0.8 mg/dL (0.6-1.3); POTASSIUM 3.3 mmol/L (3.5-5.1); TOTAL BILIRUBIN 0.4 mg/dL (0.0-1.0); TOTAL PROTEIN, SERUM 7.5 g/dL (6.4-8.2)
[2023-06-01 14:00] LABS: BASOPHILS # (AUTO) 0.1 K/uL (0.00-0.22); BASOPHILS % (AUTO) 0.7 % (0.0-2.0); EOSINOPHILS % (AUTO) 0.2 % (0.0-4.0); HEMATOCRIT 38.6 % (36-52); LYMPHOCYTES # (AUTO) 0.8 K/uL (2.0-11.5); LYMPHOCYTES % (AUTO) 5.3 % (20.5-51.1); MEAN CORPUSCULAR HEMOGLOBIN 28 pg (27-31); MEAN CORPUSCULAR HGB CONC 34 g/dL (33-37); MEAN CORPUSCULAR VOLUME 81.5 fL (80-94); MONOCYTES # (AUTO) 1.1 K/uL (0.8-1.0); MONOCYTES % (AUTO) 6.7 % (1.7-9.3); NEUTROPHILS # (AUTO) 13.8 K/uL (1.8-7.7); NEUTROPHILS % (AUTO) 87.1 % (42.2-75.2); PLATELET COUNT (AUTO) 423 K/uL (140-450); RED BLOOD CELL COUNT(AUTO) 4.74 MIL/uL (4.20-6.10); RED CELL DISTRIBUTION WIDTH 12.8 % (11.6-13.7); WHITE BLOOD COUNT (AUTO) 15.9 K/uL (4.8-10.8)
[2023-06-01 14:48] LABS: APPEARANCE,URINE CLEAR (CLEAR); BILIRUBIN,URINE NEGATIVE (NEGATIVE); BLOOD, URINE 1+ (NEGATIVE); COLOR,URINE YELLOW (YELLOW); LEUKOCYTE ESTERASE ,URINE NEGATIVE (NEGATIVE); NITRITE, URINE NEGATIVE (NEGATIVE); PH,URINE 6.5 (5.0-9.0); PROTEIN,URINE NEGATIVE (NEGATIVE); UGLUCOSE 3+ (NEGATIVE); UROBILINOGEN,URINE 0.2 EU/dL (0.2 - 1)
[2023-06-01] MEDS ORDERED: cefTRIAXone 1,000 MG VIAL ONE (15:05)
[2023-06-01] MEDS: POTASSIUM CHLORIDE 10 MEQ TABER PO ONE (15:07)
[2023-06-01] MEDS: MAGNESIUM OXIDE 400 MG TAB PO ONE (15:08)
[2023-06-01] MEDS ORDERED: METF-350 PO (15:18)
[2023-06-01] MEDS ORDERED: LANTUS SUBQ (15:19)
[2023-06-01] MEDS ORDERED: HYDROcodone/APAP 5/325 MG 1 TAB TAB PO PRN (15:25)
[2023-06-01] MEDS ORDERED: KCL 20 MEQ IN 100 mL PREMIX 200 ML IV PRN (15:25)
[2023-06-01] MEDS ORDERED: ONDANSETRON 4 MG/2 ML VIAL IVP PRN (15:25)
[2023-06-01] MEDS ORDERED: ACETAMINOPHEN 325 MG TAB PO PRN (15:25)
[2023-06-01] MEDS ORDERED: MORPHINE SULFATE 4 MG/ML SYR IVP PRN (15:25)
[2023-06-01] MEDS ORDERED: MAGNESIUM OXIDE 400 MG TAB PO PRN (15:25)
[2023-06-01] MEDS ORDERED: DEXTROSE 50% 50 ML SYR IVP PRN (15:30)
[2023-06-01 15:52] LABS: BACTERIA,URINE FEW /HPF (None Seen); SQUAMOUS EPITHELIAL CELL,UR 0-3 (FEW) /LPF (0-3 (FEW)); WBC,URINE 0-5 /HPF (0-5)
[2023-06-01 15:57] LABS: LACTIC ACID 2.2 mmol/L (0.4-2.0)
[2023-06-01] MEDS: INSULIN LANTUS 100 UNITS/ML 10 ML VIAL SUBQ SCH (16:03)
[2023-06-01] MEDS: INSULIN LISPRO SLIDING SCALE 100 UNITS/ML VIAL SUBQ PRN (16:43)
[2023-06-01] MEDS: BLOOD GLUCOSE MONITORING 1 DEV DEV FS SCH (16:43)
[2023-06-01 21:00] VITALS: BP 129/83; PULSE 105; RESP 18; TEMP 97.5; O2SAT 95
[2023-06-02 07:04] LABS: BASOPHILS # (AUTO) 0.1 K/uL (0.00-0.22); BASOPHILS % (AUTO) 0.6 % (0.0-2.0); EOSINOPHILS # (AUTO) 0.1 K/uL (0-0.4); EOSINOPHILS % (AUTO) 0.8 % (0.0-4.0); HEMATOCRIT 37.5 % (36-52); HEMOGLOBIN 12.8 g/dL (12.0-18.0); LYMPHOCYTES # (AUTO) 1.7 K/uL (2.0-11.5); LYMPHOCYTES % (AUTO) 11.1 % (20.5-51.1); MEAN CORPUSCULAR HEMOGLOBIN 27 pg (27-31); MEAN CORPUSCULAR HGB CONC 34 g/dL (33-37); MEAN CORPUSCULAR VOLUME 80.4 fL (80-94); MONOCYTES # (AUTO) 1.1 K/uL (0.8-1.0); MONOCYTES % (AUTO) 7.5 % (1.7-9.3); NEUTROPHILS # (AUTO) 12.2 K/uL (1.8-7.7); PLATELET COUNT (AUTO) 386 K/uL (140-450); RED BLOOD CELL COUNT(AUTO) 4.66 MIL/uL (4.20-6.10); RED CELL DISTRIBUTION WIDTH 12.7 % (11.6-13.7); WHITE BLOOD COUNT (AUTO) 15.3 K/uL (4.8-10.8)
[2023-06-02 07:41] LABS: CALCIUM 7.8 mg/dL (8.5-10.1); CREATININE 0.4 mg/dL (0.6-1.3)
[2023-06-02 08:00] VITALS: BP 134/94; PULSE 96; RESP 18; TEMP 97.5; O2SAT 95
[2023-06-02] MEDS: ENOXAPARIN 40 MG/0.4 ML SYR SUBQ SCH (08:47)
[2023-06-02] MEDS: POTASSIUM CHLORIDE 10 MEQ TABER PO PRN (08:56)
[2023-06-02] MEDS: MEDS-TO-BEDS MC SCH (09:39)
[2023-06-02 12:00] VITALS: BP 134/94; PULSE 96; RESP 18; TEMP 97.5; O2SAT 95
[2023-06-02] MEDS ORDERED: AMOX1TER15 PO (12:57)
[2023-06-28] MEDS ORDERED: AMOX-1230 PO (14:50)
[2023-06-28] MEDS ORDERED: LANTUS SUBQ (22:18)
[2023-06-30] MEDS ORDERED: AMOX-1230 PO (13:50)
== END 2023-06-02 15:15 | disposition home or self-care (01) ==
LOC: MED 12:35 → MTU 15:28
PROVIDERS: ADMIT Student in an Organized Health Care Education/Training Program; ATTEND Student in an Organized Health Care Education/Training Program
DX: E11.65 Type 2 diabetes mellitus with hyperglycemia (principal); J18.9 Pneumonia, unspecified organism; E86.1 Hypovolemia; D84.9 Immunodeficiency, unspecified; E87.20 Acidosis, unspecified; K21.9 Gastro-esophageal reflux disease without esophagitis; I10 Essential (primary) hypertension; Z79.84 Long term (current) use of oral hypoglycemic drugs; Z79.4 Long term (current) use of insulin
CPT/HCPCS: 36415; 71045; 71260; 80048; 80053; 81001; 82948; 83605; 83690; 83735; 85025; 87040; 87081; 93005; 96361; 96365; 96372; 99285; G0378; J0696; J1650; J1815; J7060; Q9967

== ENCOUNTER 2023-07-06 12:42 | Emergency (ER) | payer OTHER ==
[~2023-07-06] VITALS: Ht 177.8 cm; Wt 74.8 kg
[~2023-07-06 12:42] MED LIST changes: +AMOX-1230 PO; -GLUC-805 FS; +METF-350 PO; -METF-713 PO
[2023-07-06 12:47] VITALS: BP 121/83; PULSE 120; RESP 22; TEMP 98.2; O2SAT 95
[2023-07-06 15:11] LABS: BASOPHILS # (AUTO) 0.2 K/uL (0.00-0.22); BASOPHILS % (AUTO) 2.3 % (0.0-2.0); EOSINOPHILS # (AUTO) 0.4 K/uL (0-0.4); EOSINOPHILS % (AUTO) 5.3 % (0.0-4.0); HEMOGLOBIN 13.2 g/dL (12.0-18.0); LYMPHOCYTES # (AUTO) 1.7 K/uL (2.0-11.5); LYMPHOCYTES % (AUTO) 20.9 % (20.5-51.1); MEAN CORPUSCULAR HEMOGLOBIN 27 pg (27-31); MEAN CORPUSCULAR HGB CONC 34 g/dL (33-37); MEAN CORPUSCULAR VOLUME 81.2 fL (80-94); MONOCYTES # (AUTO) 0.5 K/uL (0.8-1.0); MONOCYTES % (AUTO) 5.5 % (1.7-9.3); NEUTROPHILS # (AUTO) 5.5 K/uL (1.8-7.7); PLATELET COUNT (AUTO) 336 K/uL (140-450); RED CELL DISTRIBUTION WIDTH 17.3 % (11.6-13.7); WHITE BLOOD COUNT (AUTO) 8.3 K/uL (4.8-10.8)
[2023-07-06 15:24] LABS: CALCIUM 8.6 mg/dL (8.5-10.1); CARBON DIOXIDE 26.1 mmol/L (21-32); CREATININE 0.8 mg/dL (0.6-1.3); POTASSIUM 4.1 mmol/L (3.5-5.1)
[2023-07-06] MEDS: NACL 0.9% 1,000 ML IV ONE (15:32)
[2023-07-06 15:33] LABS: ALANINE AMINOTRANSFERASE 23 U/L (12-78); ALBUMIN 2.6 g/dL (3.4-5.0); ALKALINE PHOSPHATASE 95 U/L (50-136); ASPARTATE AMINOTRANSFERASE 20 U/L (15-37); BILIRUBIN,DIRECT 0.1 mg/dL (0.0-0.3); TOTAL BILIRUBIN 0.3 mg/dL (0.0-1.0); TOTAL PROTEIN, SERUM 7.8 g/dL (6.4-8.2)
[2023-07-06 15:35] LABS: AMPHETAMINE, URINE NEGATIVE ng/ml (NEG <=1000); BARBITURATE, URINE NEGATIVE ng/ml (NEG <=200); BENZODIAZEPINE, URINE NEGATIVE ng/mL (NEG <=200); CANNABINOID, URINE POSITIVE ng/mL (NEG <=50); COCAINE, URINE NEGATIVE ng/mL (NEG <=300); OPIATE, URINE NEGATIVE ng/mL (NEG <=2000); PHENCYCLIDINE SCREEN,URINE NEGATIVE ng/mL (NEG <=25)
[2023-07-06 16:24] VITALS: BP 115/78; PULSE 80; RESP 18; O2SAT 100
== END 2023-07-06 16:26 | disposition home or self-care (01) ==
LOC: MED 12:42
DX: E11.65 Type 2 diabetes mellitus with hyperglycemia (principal); Z79.4 Long term (current) use of insulin; Z79.899 Other long term (current) drug therapy
CPT/HCPCS: 36415; 71045; 80048; 80076; 80305; 82948; 84484; 85025; 93005; 96360; 99285; J7030